=== PATIENT | female | born 1935 | race Caucasian/White ===

== ENCOUNTER 2016-03-15 09:25 | Inpatient (IN) | payer MEDICARE, MEDICAID ==
[~2016-03-15] VITALS: Ht 167.6 cm; Wt 37.3 kg
--- NOTE | 2016-03-15 10:20 | NUR ---
PT ARRIVED TO ROOM 2132 VIA WHEELCHAIR, ACCOMPANIED BY ADMISSION STAFF. PT ORIENTED TO ROOM AND CALL LIGHT. WILL DO ASSESSMENT AND START PLAN OF CARE ON PT. PT DENIES ANY NEEDS AT THIS TIME, CALL LIGHT IN REACH, NAD NOTED, WILL CONTINUE TO MONITOR.
--- NOTE | 2016-03-15 11:21 | NUR ---
#20 gauge IV catheter placed in right forearm. Bria Leblanc RN
[2016-03-15 11:45] LABS: BASOPHILS 0.3 % (0.0-2.0); EOSINOPHILS 1.9 % (0-7); HEMATOCRIT 27.3 % (36.0-48.0); HEMOGLOBIN 9.1 g/dL (12-16); IMMATURE GRANULOCYTES 0.2 % (0-5); LYMPHOCYTES 29.7 % (15-50); MCH 30.2 pg (26.0-34.0); MCHC 33.3 g/dL (31.0-37.0); MCV 90.7 fL (80.0-100.0); MEAN PLATELET VOLUME 10.9 fL (7.4-10.4); MONOCYTES 6.4 % (2-11); NEUTROPHILS 61.5 % (40-80); PLATELET COUNT 257 10x3/uL (130-400); RBC 3.01 10x6/uL (4.00-5.40); RDW 14.6 % (11.5-14.5); WBC 5.8 10x3/uL (4.8-10.8)
[2016-03-15 12:03] LABS: INR 1.11 (0.85-1.17); PROTIME 14.2 SECONDS (11.6-15.0)
[2016-03-15 12:15] LABS: ALBUMIN 3.7 g/dL (3.4-5.0); ANION GAP 20.4 mmol/L (8-16); BILIRUBIN - TOTAL 0.3 mg/dL (0.2-1.3); CARBON DIOXIDE 18.7 mmol/L (21.0-32.0); CREATININE - SERUM 4.3 mg/dL (0.6-1.3); POTASSIUM - SERUM 4.1 mmol/L (3.5-5.1); PROTEIN - SERUM 7.1 g/dL (6.4-8.2); THYROID STIMULATING HORMONE 2.28 uIU/mL (0.36-3.74); URIC ACID 7.3 mg/dL (2.6-7.2)
[2016-03-15 12:22] LABS: CALCIUM 6.7 mg/dL (8.5-10.1)
--- NOTE | 2016-03-15 14:10 | NUR ---
RATIONALE FOR SCD'S EXPLAINED. REFUSES SCD'S TODAY. WILL WEAR TONIGHT
[2016-03-15 14:20] VITALS: BP 149/82; BMI 16.1
[2016-03-15 16:07] VITALS: BP 107/74
[2016-03-15] MEDS ORDERED: MELATONIN 10 M1 EACH PO (17:12)
[2016-03-15] MEDS ORDERED: SYNTHROID50 MCG PO (17:14)
[2016-03-15] MEDS ORDERED: ACETAMINOPHEN325 MG PO (17:15)
[2016-03-15] MEDS ORDERED: ROCALTROL0.5 MCG PO (17:16)
[2016-03-15] MEDS ORDERED: TUMS500 MG PO (17:16)
--- NOTE | 2016-03-15 19:30 | NUR ---
ASSESSMENT COMPLETE, DENIES NEEDS AT THIS TIME. HOB UP SR UP X2, C/L IN REACH. RESP EVEN AND UNLAB Hard OF HEARING, USES OWN WALKER TO ASSIST WITH MOBILITY. BILAT SCDS NOT IN USE AT THIS TIME. WANTS TO WEAR AT HS. RT FA IV WITH NO R/S NOTED AT SITE. SODIUM BICARB INFUSING W/O DIFF VIA PUMP. WANAD WELL. ALERT AND ORIENTED X3. CONTINUE TO MONITOR.
--- NOTE | 2016-03-15 22:12 | NUR ---
PM MEDICATION GIVEN PO PER ORDERS, WANDA WELL. C/L IN REACH.
[2016-03-15 22:30] VITALS: BP 142/91
[2016-03-16 02:50] VITALS: BP 122/81
--- NOTE | 2016-03-16 02:54 | NUR ---
AWAKE ALERT, DENIES NEEDS AT THIS TIME. HOB UP SR UP X2, C/L IN REACH. WARM TOWELS PLACED OVER SHOULDERS PER REQUEST. BILAT SCDS IN PLACE TO LOWER LEGS. WANDA WELL. CONTINUE TO MONITOR.
[2016-03-16 06:05] VITALS: BP 143/86
[2016-03-16 06:34] LABS: BASOPHILS 0.1 % (0.0-2.0); EOSINOPHILS 2.4 % (0-7); HEMATOCRIT 26.1 % (36.0-48.0); HEMOGLOBIN 8.7 g/dL (12-16); IMMATURE GRANULOCYTES 0.3 % (0-5); LYMPHOCYTES 15.6 % (15-50); MCH 30.1 pg (26.0-34.0); MCHC 33.3 g/dL (31.0-37.0); MCV 90.3 fL (80.0-100.0); MEAN PLATELET VOLUME 10.6 fL (7.4-10.4); MONOCYTES 3.8 % (2-11); NEUTROPHILS 77.8 % (40-80); PLATELET COUNT 259 10x3/uL (130-400); RBC 2.89 10x6/uL (4.00-5.40); RDW 14.3 % (11.5-14.5); WBC 7.1 10x3/uL (4.8-10.8)
[2016-03-16 06:52] LABS: ANION GAP 17.7 mmol/L (8-16); CARBON DIOXIDE 22.2 mmol/L (21.0-32.0); CREATININE - SERUM 4.1 mg/dL (0.6-1.3); POTASSIUM - SERUM 3.9 mmol/L (3.5-5.1)
--- NOTE | 2016-03-16 06:58 | NUR ---
RECEIVED REPORT FROM FINISHER PLATE NURSE, KIERA CHARLTON. PT IN BED, SLEEPING AT THIS TIME. SCD'S ON BILAT, CALL LIGHT IN REACH, NAD NOTED, WILL CONTINUE TO MONITOR.
[2016-03-16 07:06] LABS: CALCIUM 6.2 mg/dL (8.5-10.1)
[2016-03-16 08:17] LABS: HEP B CORE AB TOTAL Negative (Negative); HEPATITIS C ANTIBODY <0.1 (0.0-0.9)
--- NOTE | 2016-03-16 08:20 | NUR ---
ADMINSITERED MORNING MEDICATIONS, PT HAD NO TROUBLE SWALLOWING PILLS, BUT TOOK ONE PILL AT A TIME. ALSO PLACED 16F OLEARY CATHETER PER DR. CANALES'S ORDER, IV FLUIDS D/C. TOTAL OUTPUT DURING THE TIME OF OLEARY PLACEMENT WAS 500CC. COLLECTED URINE SAMPLE AND TOOK IT TO LAB. ASSESSED PT, LUNGS SOUND WET. PT DENIES ANY NEEDS AT THIS TIME. CALL LIGHT IN REACH, NAD NOTED, WILL CONTINUE TO MONITOR.
[2016-03-16 08:21] VITALS: BP 146/73
--- NOTE | 2016-03-16 08:47 | NUR ---
WENT INTO PT ROOM, BECAUSE I HEARD PT CALLING OUT FOR HELP. WHEN I WALKED IN THE ROOM PT STATED THAT SHE COULDN'T BREATH AND WAS ACTING LIKE SHE WAS CHOKING. ASKED JAISON BROOKS TO CALL A RAPID RESPONSE. RAPID RESPONSE WAS CALLED AT 0848, MALIK NURSE ASTRONOMY INSTRUCTOR AT BEDSIDE, PLACED O2 AT 4L FOR O2 OF 77, PLACED TELEMETRY ON PT, TURNED PT TO LEFT SIDE BECAUSE SHE WAS SPITTING UP HER FOOD. RAPID RESPONSE TEAM ARRIVED TO ROOM. PT STATS NOW 96 ON 4L, BP A LITTLE HIGH BUT STABLE VITAL SIGNS. HOB RAISED TO 30 DEGREES. PT STATED THAT SHE FELT MUCH BETTER, ONDINA GARCIA LEFT VOICEMAIL FOR DAUGHTER. DOCTOR NOTIFIED. 0900 PT STABLE AT THIS TIME, NAD NOTED, WILL CONTINUE TO MONITOR. 1020- SPOKE WITH LINDEN, PT'S DAUGHTER IN LAW, INFORMED HER ABOUT RAPID RESPONSE AND EVERYTHING THAT WENT ON. LINDEN STATED THAT SHE WOULD NOTIFY PT'S DAUGHTER THAT PT IS NOW STABLE.
--- NOTE | 2016-03-16 08:52 | NUR ---
LEFT MESSAGE FOR PT DTR TO CALL LEXIE
--- NOTE | 2016-03-16 08:59 | NUR ---
Patient Name: REUBEN GIVENS Admission Status: Urgent Accout number: [id number] Admission Date: 03-15-2016 : 1935 Admission Diagnosis: Attending: JOHN Current LOS: 1 Anticipated DC Date: Planned Disposition: Assisted Living Primary Insurance: MEDICARE A & B PLANNED EXTERNAL PROVIDER: [facility] Discharge Planning Comments: * Is the patient Alert and Oriented? No 0 * How many steps to enter\exit or inside your home? NONE 0 * Preadmission Environment Assisted Living 0 * Facility Name [facility] 0 * ADLs Partial Dependent 0 * Partial ADLs (Assistance needed) Medication Management 0 * Community resources currently utilized None 0 * Please name any agencies selected above. NONE 0 * Additional services required to return to the preadmission environment? Yes * Can the patient safely return to the preadmission environment? Yes 0 * Has this patient been hospitalized within the prior 30 days at any hospital? No 0 CM RECEIVED CALL FROM TAMIA OF [facility] WHO INFORMED CM THAT PT LIVES AT [facility], THEY WILL NEED NURSE REPORT AND DISCHARGE INFORMATION FAXED FOR PT'S RETURN AT DISCHARGE. TAMIA ASKED TO BE NOTIFIED SOON POSSIBLE REGARDING ANY ANTICIPATED DISCHARGE DATE SO THAT TRANSPORTATION ARRANGEMENTS MAY BE MADE TIMELY. CM ATTEMPTED TO SPEAK TO PT IN ROOM, RAPID REPONSE IN PROGRESS. CM TO FOLLOW UP WITH PT FOR ASSESSMENT AT LATER DATE / TIME. PT LIVES AT [facility]; FOR RETURN AT DISCHARGE, NURSE REPORT TO BE CALLED TO [phone], FAX DISCHARGE INFORMATION TO [phone]. CM WILL ASSESS PT AT LATER DATE / TIME TO DETERMINE DISCHARGE NEEDS. Smokehouse Worker: Rajan Donovan
[2016-03-16 09:46] LABS: APPEARANCE CLEAR (CLEAR); BILIRUBIN NEGATIVE (NEGATIVE); COLOR YELLOW (YELLOW); GLUCOSE NEGATIVE (NEGATIVE); KETONE NEGATIVE (NEGATIVE); LEUKOCYTE ESTERASE NEGATIVE (NEGATIVE); NITRITE NEGATIVE (NEGATIVE); PROTEIN TRACE mg/dL (NEGATIVE); UROBILINOGEN NORMAL (NORMAL)
[2016-03-16 09:47] LABS: BACTERIA FEW /hpf (NONE SEEN); EPITHELIAL CELLS OCC /hpf (0-5); RED CELLS - URINE OCC /hpf (0-5); WHITE CELLS - URINE RARE /hpf (0-5)
[2016-03-16 12:04] VITALS: BP 131/84
[2016-03-16 12:39] VITALS: Ht 167.6 cm; Wt 37.3 kg
--- NOTE | 2016-03-16 12:40 | NUR ---
RECEIVED CALL FROM [facility], SPOKE WITH PARMJIT RHODES, AND SHE INFOMRED ME THAT PT WAS SCHEDULE FOR TOMORROW TO HAVE A RENAL ULTRSOUND DONW AT [facility]. I ALSO ASKED HER TO FAX A LIST OF THE MEDICATIONS THAT PT TAKES AND A COPY OF HER LIVING WILL.
[2016-03-16 15:45] VITALS: BP 149/81
[2016-03-16] MEDS ORDERED: MIRAPEX1.5 MG PO (17:50)
[2016-03-16] MEDS ORDERED: MULTIPLE VITAMI1 TA1 PO (17:52)
[2016-03-16] MEDS ORDERED: MILK OF MAGNESI30 ML PO (17:55)
[2016-03-16] MEDS ORDERED: FOSAMAX PLUS D1 TA1 PO (17:55)
[2016-03-16] MEDS ORDERED: OPTIVE EYE DROP30 ML EACH EYE (17:57)
[2016-03-16] MEDS ORDERED: IMODIUM2 MG PO (17:59)
[2016-03-16] MEDS ORDERED: PEPTO-BISMOL262 M1 PO (18:00)
[2016-03-16] MEDS ORDERED: MUCINEX DM ER1 EAC1 PO (18:00)
[2016-03-16] MEDS ORDERED: IBUPROFEN200 MG PO (18:01)
[2016-03-16] MEDS ORDERED: ACETAMINOPHEN500 M1 PO (18:03)
--- NOTE | 2016-03-16 19:30 | NUR ---
ASSESSMENT COMPLETE, DENIES NEEDS AT THIS TIME. HOB UP SR UP X2, C/L IN REACH. TELEMETRY IN PLACE SHOWING HR SR WITH FIRST DEGREE AV BLOCK PER VEHICLE DETAILER. RESP EVEN AND UNLAB WITH O2 @ 3.5LNC IN PLACE, CRACKLES NOTED IN BILAT LUNG CLEANING, RT FA IV WITH NO R/S NOTED AT SITE. OLEARY CATH INTACT AND PATENT WITH YELLOW URINE NOTED IN BAG, BILAT SCDS IN PLACE TO LOWER LEGS. UP WITH ASSIST OF STAFF AND WALKER TO BR. WANDA WELL. CONTINUE TO MONITOR.
[2016-03-16 20:00] VITALS: BP 129/74
--- NOTE | 2016-03-16 21:27 | NUR ---
PM MEDS GIVEN W/O DIFF. VOICES NO C/O PAIN OR DISCOMFORT AT THIS TIME. HOB UP SR UP X2, C/L IN REACH. CONTINUE TO MONITOR.
[2016-03-17] VITALS (7 sets, daily range): BP systolic 124–168; BP diastolic 73–90
[2016-03-17 05:41] LABS: BASOPHILS 0.1 % (0.0-2.0); EOSINOPHILS 0.8 % (0-7); HEMATOCRIT 27.2 % (36.0-48.0); HEMOGLOBIN 8.9 g/dL (12-16); IMMATURE GRANULOCYTES 0.6 % (0-5); LYMPHOCYTES 11.8 % (15-50); MCH 29.9 pg (26.0-34.0); MCHC 32.7 g/dL (31.0-37.0); MCV 91.3 fL (80.0-100.0); MEAN PLATELET VOLUME 10.5 fL (7.4-10.4); MONOCYTES 4.9 % (2-11); NEUTROPHILS 81.8 % (40-80); PLATELET COUNT 256 10x3/uL (130-400); RBC 2.98 10x6/uL (4.00-5.40); RDW 14.4 % (11.5-14.5); WBC 7.8 10x3/uL (4.8-10.8)
[2016-03-17 05:55] LABS: ANION GAP 18.7 mmol/L (8-16); CARBON DIOXIDE 22.2 mmol/L (21.0-32.0); CREATININE - SERUM 4.3 mg/dL (0.6-1.3); PHOSPHOROUS 6.1 mg/dL (2.5-4.9); POTASSIUM - SERUM 3.9 mmol/L (3.5-5.1); THYROID STIMULATING HORMONE 1.75 uIU/mL (0.36-3.74)
[2016-03-17 05:59] LABS: CALCIUM 6.5 mg/dL (8.5-10.1)
[2016-03-17 06:17] LABS: ALBUMIN 3.4 g/dL (3.4-5.0)
--- NOTE | 2016-03-17 07:15 | NUR ---
RECIEVED REPORT ON PATIENT, PATIENT IS ALERT AND ORIENTED. PATIENT HAS A R FA IV THAT IS SL AT THIS TIME. PATIENT WEARING 4L/MIN VIA NC WITH O2 SAT 98%. PATIENT HAS A PRODUCTIVE COUGH, CRACKLES NOTED THROUGHOUT LUNG CLEANING. NOTIFIED DR CANALES HE IS GOING TO ORDER BREATHING TREATMENTS. PATIENT USING YANKER FOR SPUTUM. DENIES ANY OTHER NEEDS. WILL CONT TO MONITOR PATIENT. CPOC
--- NOTE | 2016-03-17 09:30 | NUR ---
MORNING MEDICATIONS GIVEN, ASSESSMENT DONE. TYLENOL GIVEN FOR HEADACHE. PATIENT DENIES ANY OTHER NEEDS. BED LOW AND LOCKED. CPOC
--- NOTE | 2016-03-17 12:00 | NUR ---
PATIENT SITTING UP EATING LUNCH AT THIS TIME. DENIES ANY PAIN OR NEEDS. CPOC
--- NOTE | 2016-03-17 15:00 | NUR ---
IV access-#22 gauge IV catheter in left forearm for saline lock. Bria Victoria RN
--- NOTE | 2016-03-17 16:17 | NUR ---
PATIENT SLEEPING AT THIS TIME. NAD NOTED, CHEST RISES AND FALLS EQUALLY. WILL CONT TO MONITOR
--- NOTE | 2016-03-17 20:33 | NUR ---
HS MEDS GIVEN, REPOSITIONED IN BED FOR COMFORT. PT STATED THAT SHE CANT FIND HER CELL PHONE BUT CAN HEAR IT RINGING, STRAIGHTEND UP BLANKETS ON BED AND FOUND PHONE UNDER PINK PAD ON BED.
[2016-03-18] VITALS: BP 119/69
--- NOTE | 2016-03-18 00:42 | NUR ---
CALCIUM GLUCONATE INFUSING TO LEFT FOREARM IV, RESPERATIONS EVEN, NO S/S DISTRESS NOTED.
--- NOTE | 2016-03-18 01:13 | NUR ---
PT RESTING SOUNDLY WITHOUT C/O OR DISTRESS NOTED. CALL LIGHT IS WITHIN REACH. NO NEEDS VOICED. WILL MONITOR.
[2016-03-18 04:00] VITALS: BP 116/60
[2016-03-18 06:08] LABS: BASOPHILS 0.1 % (0.0-2.0); EOSINOPHILS 0 % (0-7); HEMATOCRIT 24.6 % (36.0-48.0); HEMOGLOBIN 8.5 g/dL (12-16); IMMATURE GRANULOCYTES 0.6 % (0-5); LYMPHOCYTES 8.3 % (15-50); MCH 31.3 pg (26.0-34.0); MCHC 34.6 g/dL (31.0-37.0); MCV 90.4 fL (80.0-100.0); MEAN PLATELET VOLUME 10.3 fL (7.4-10.4); MONOCYTES 3.4 % (2-11); NEUTROPHILS 87.6 % (40-80); PLATELET COUNT 225 10x3/uL (130-400); RBC 2.72 10x6/uL (4.00-5.40); RDW 14.6 % (11.5-14.5)
[2016-03-18 06:34] LABS: % SATURATION 5 % (15-55); IRON 12 ug/dl (35-150); TOTAL IRON BIND CAPACITY 231 ug/dl (260-445); UNSAT IRON BIND CAPACITY 219 ug/dl (150-375)
[2016-03-18 06:50] LABS: ANION GAP 17.9 mmol/L (8-16); CARBON DIOXIDE 21.7 mmol/L (21.0-32.0); CREATININE - SERUM 4.6 mg/dL (0.6-1.3); POTASSIUM - SERUM 3.6 mmol/L (3.5-5.1)
[2016-03-18 06:52] LABS: CALCIUM 6.9 mg/dL (8.5-10.1)
--- NOTE | 2016-03-18 07:00 | NUR ---
RECEIVED REPORT. ASSUMED CARE OF PATIENT. PATIENT SITTING UP IN BED. EYES CLOSED. STATES SHE HAS A HEADACHE THIS AM BUT OTHERWISE SHE STATES SHE IS OK. RESP EVEN AND UNLABORED. RHONCHI AND WHEEZES NOTED DURING ASSESSMENT AT THIS TIME. CALL LIGHT WITH IN REACH. NO ACUTE DISTRESS.
[2016-03-18 07:34] VITALS: BP 94/61
--- NOTE | 2016-03-18 09:23 | NUR ---
MEDICATED FOR HEADACHE AT THIS TIME. NO DISTRESS.
[2016-03-18 12:13] VITALS: BP 93/52
--- NOTE | 2016-03-18 12:14 | NUR ---
PATIENT SITTING UP IN CHAIR AT BEDSIDE CONSUMING NOON MEAL. NO DISTRESS. CALL LIGHT WITHIN REACH.
--- NOTE | 2016-03-18 14:46 | NUR ---
ASSISTED PATIENT BACK TO BED FROM BEDSIDE CHAIR AT THIS TIME. NO DISTRESS. CALL LIGHT PLACED WITHIN REACH. NO DISTRESS DENIES PAIN AT THIS TIME.
[2016-03-18 16:19] VITALS: BP 120/62
--- NOTE | 2016-03-18 18:43 | NUR ---
RESTING IN BED WITH EYES OPEN. ATTENTION TOWARD TELEVISION. CALL LIGHT WITHIN REACH. NO DISTRESS. DENIES PAIN.
--- NOTE | 2016-03-18 19:57 | NUR ---
ASSESSMENT COMPLETE, A&O, O2 AT 4 ITER VIA NC. RESPERATIONS EVEN. IV TO LEFT FOREARM WITH NS AT KVO. SITE CLEAN AND DRY. OLEARY DRAINING TO GRAVITY, PT DENIES PAIN OR NEEDS, BED LOW, CL IN REACH.
[2016-03-18 20:49] VITALS: BP 120/58
--- NOTE | 2016-03-18 20:57 | NUR ---
HS MEDS GIVEN WITH FRESH ICE WATER, DENIES PAIN OR NEEDS, WILL CONT TO MONITOR.
--- NOTE | 2016-03-18 21:10 | NUR ---
CONTROLS PROJECT ENGINEER AT BED SIDE, BATH AND LINEN CHANGE COMPLETE.
--- NOTE | 2016-03-19 00:07 | NUR ---
PT RESTING WITH EYES CLOSED. RESP EVEN AND REGULAR. SR UP X2, CALL LIGHT WITHIN REACH.
[2016-03-19 00:36] VITALS: BP 98/46
--- NOTE | 2016-03-19 03:33 | NUR ---
RESTING WITH EYES CLOSED, RESPERATIONS EVEN, NO S/S DISTRESS NOTED.
[2016-03-19 04:39] VITALS: BP 137/50
[2016-03-19 06:56] LABS: BASOPHILS 0.1 % (0.0-2.0); EOSINOPHILS 0 % (0-7); HEMATOCRIT 23.3 % (36.0-48.0); HEMOGLOBIN 7.9 g/dL (12-16); IMMATURE GRANULOCYTES 0.7 % (0-5); LYMPHOCYTES 4.1 % (15-50); MCH 30.4 pg (26.0-34.0); MCHC 33.9 g/dL (31.0-37.0); MCV 89.6 fL (80.0-100.0); MONOCYTES 3.4 % (2-11); NEUTROPHILS 91.7 % (40-80); RDW 14.3 % (11.5-14.5)
[2016-03-19 06:59] LABS: PLATELET COUNT 168 10x3/uL (130-400); WBC 18.7 10x3/uL (4.8-10.8)
--- NOTE | 2016-03-19 07:00 | NUR ---
RECEIVED REPORT. ASSUMED CARE OF PATIENT. CALL LIGHT WITHIN REACH. RESTING WITH EYES CLOSED. EASILY AROUSED. RESP EVEN AND UNLABORED. NO ACUTE DISTRESS. NS INFUSING AT KVO TO LEFT FOREARM.
[2016-03-19 07:38] LABS: ANION GAP 19.8 mmol/L (8-16); PHOSPHOROUS 6.3 mg/dL (2.5-4.9); POTASSIUM - SERUM 3.8 mmol/L (3.5-5.1)
[2016-03-19 07:39] LABS: CALCIUM 6.7 mg/dL (8.5-10.1)
--- NOTE | 2016-03-19 09:00 | NUR ---
PATIENT OOB AMBULATING WITH ROLLING WALKER WITH ASSIST OF THIS GRAPE CUTTER AND PT. TOLERATED THERAPY WELL. NO DISTRESS.
[2016-03-19 09:31] VITALS: BP 129/57
--- NOTE | 2016-03-19 11:30 | NUR ---
PATIENT RESTING IN BED. INCONTINENT CARE PROVIDED. PERICARE PROVIDED. CALL LIGHT WITHIN REACH. NO DISTRESS. DENIES PAIN. ASSIST TO REPOSITION AND SIT PATINET UP IN BED AFTER CARES RENDERED SO PATIENT CAN EAT NOON MEAL.
[2016-03-19 12:55] VITALS: BP 126/62
--- NOTE | 2016-03-19 15:15 | NUR ---
UA COLLECTED AND SENT TO LAB.
[2016-03-19 15:57] LABS: CREATININE - URINE 13.6 mg/dL (30-125); PROTEIN - URINE 35.3 mg/dL (0.0-11.9)
[2016-03-19 16:07] LABS: APPEARANCE HAZY (CLEAR); COLOR STRAW (YELLOW)
[2016-03-19 16:08] LABS: BILIRUBIN NEGATIVE (NEGATIVE); GLUCOSE NEGATIVE (NEGATIVE); KETONE NEGATIVE (NEGATIVE); LEUKOCYTE ESTERASE NEGATIVE (NEGATIVE); NITRITE NEGATIVE (NEGATIVE); PROTEIN TRACE mg/dL (NEGATIVE); UROBILINOGEN NORMAL (NORMAL)
[2016-03-19 16:10] LABS: BACTERIA FEW /hpf (NONE SEEN); EPITHELIAL CELLS 0-5 /hpf (0-5); GRANULAR CAST OCC /lpf (NONE SEEN); MUCUS <1+ /lpf (NONE SEEN); WHITE CELLS - URINE 0-5 /hpf (0-5)
[2016-03-19 16:59] VITALS: BP 148/68
--- NOTE | 2016-03-19 18:00 | NUR ---
RESTING WITH EYES CLOSED. EASILY AROUSED. RESP EVEN AND UNLABORED. CALL LIGHT WITHIN REACH. NO DISTRESS.
--- NOTE | 2016-03-19 19:03 | NUR ---
RESTING QUIETLY IN BED, EYES CLOSED, RESP UNLABORED, IV PATENT TO LEFT FOREARM, O2@4LNC, OLEARY DRAINING TO GRAVITY, NO DISTRESS NOTED
[2016-03-19 21:36] VITALS: BP 129/73
--- NOTE | 2016-03-20 01:13 | NUR ---
IV OUT, RESITED TO LEFT FOREARM USING 22G X1 ATTEMPT, WANDA WELL
[2016-03-20 02:34] VITALS: BP 120/62
[2016-03-20 04:44] VITALS: BP 131/69
--- NOTE | 2016-03-20 06:00 | NUR ---
RESTING QUIETLY IN BED, IV PATENT, NO DISTRESS NOTED
[2016-03-20 06:57] LABS: BASOPHILS 0.1 % (0.0-2.0); EOSINOPHILS 0.2 % (0-7); HEMATOCRIT 25.4 % (36.0-48.0); HEMOGLOBIN 8.6 g/dL (12-16); IMMATURE GRANULOCYTES 0.7 % (0-5); LYMPHOCYTES 9.7 % (15-50); MCH 30.3 pg (26.0-34.0); MCHC 33.9 g/dL (31.0-37.0); MCV 89.4 fL (80.0-100.0); MEAN PLATELET VOLUME 10.4 fL (7.4-10.4); MONOCYTES 3.8 % (2-11); NEUTROPHILS 85.5 % (40-80); RBC 2.84 10x6/uL (4.00-5.40); RDW 14.2 % (11.5-14.5); WBC 14.6 10x3/uL (4.8-10.8)
[2016-03-20 07:05] LABS: PLATELET COUNT 244 10x3/uL (130-400)
[2016-03-20 07:19] LABS: CARBON DIOXIDE 21.2 mmol/L (21.0-32.0)
[2016-03-20 07:30] LABS: POTASSIUM - SERUM 3.2 mmol/L (3.5-5.1)
[2016-03-20 07:31] LABS: CALCIUM 6.5 mg/dL (8.5-10.1)
[2016-03-20 08:00] VITALS: BP 143/73
--- NOTE | 2016-03-20 09:59 | NUR ---
PT IS ALERT. ASSESSMENT DONE PER FLOWSHEET. NO OTHER NEEDS AT THIS TIME. WILL CONTINUE TO MONITOR.
[2016-03-20 11:08] VITALS: BP 105/64
--- NOTE | 2016-03-20 12:43 | NUR ---
Patient Name: REUBEN GIVENS Encounter No: [id number] : 1935 Primary Insurance: MEDICARE A & B Anticipated DC Date: Planned Disposition: INPATIENT REHAB External Planned Provider: [facility] DCP follow-up note: * Is the patient Alert and Oriented? Yes 0 * How many steps to enter\exit or inside your home? NONE 0 * PCP DR. ROY 0 * Pharmacy [facility] 0 * Preadmission Environment Assisted Living 0 * Facility Name [facility] 0 * ADLs Partial Dependent 0 * Partial ADLs (Assistance needed) Medication Management 0 * Equipment Walker 0 * Other Equipment NO MEDICAL EQUIPMENT PROVIDER PREFERENCE 0 * List name and contact numbers for known caregivers / representatives who currently or will assist patient after discharge: SID TRENT, DAUGHTER, 0 * Community resources currently utilized None 0 * Please name any agencies selected above. NONE 0 * Additional services required to return to the preadmission environment? Yes * Can the patient safely return to the preadmission environment? Yes 0 * Has this patient been hospitalized within the prior 30 days at any hospital? No 0 CM SPOKE TO DINESH WITH PHYSICAL THERAPY WHO REPORTS PT TO HAVE POOR BALANCE AND WALKED 70 FEET WITH MODERATE ASSISTANCE, RECOMMENDS INPATIENT THERAPY PRIOR TO RETURN TO ASSISTED LIVING. CM SPOKE TO PT IN ROOM, DISCUSSED INPATIENT AND [facility] REHAB OPTIONS, PT WOULD LIKE TO BE EVALUATED FOR INPATIENT REHAB AT [place] FOR RETURN TO ASSISTED LIVING AT [facility]. IMPORTANT MESSAGE FROM MEDICARE PROVIDED AND EXPLAINED. CM SPOKE TO YULIA OF [facility] INPATIENT REHAB AND OBTAINED ORDER FOR INPATIENT REHAB PRESCREEN. CM WAITING COMPLETION AND RESULT OF INPATIENT REHAB PRESCREEN BY [facility] INPATIENT REHAB. Rajan Donovan, CASE MANAGEMENT
--- NOTE | 2016-03-20 13:18 | NUR ---
NO SS OF DISTRESS AT THIS TIME WILL CONTINUE TO MONITOR. NO OTHER NEEDS
[2016-03-20 15:09] VITALS: BP 142/78
[2016-03-20] MEDS ORDERED: ACETAMINOPHEN325 MG PO (15:21)
[2016-03-20] MEDS ORDERED: DIFLUCAN100 MG PO (15:28)
[2016-03-20] MEDS ORDERED: LEVAQUIN250 MG PO (15:29)
[2016-03-20] MEDS ORDERED: ZOSYN 2.25 GM2.25 G1 IV (15:29)
[2016-03-20] MEDS ORDERED: TUMS500 MG PO (15:49)
[2016-03-20] MEDS ORDERED: LOVENOX30 MG/0.3 SC (15:51)
[2016-03-20] MEDS ORDERED: BUMEX 1 MG/1 MG/4 ML IV (15:52)
[2016-03-20] MEDS ORDERED: IPRAT-ALBUT 0.5-3 ML UPD (15:52)
[2016-03-20] MEDS ORDERED: FLORAJEN3 CAPS460 MG PO (15:53)
[2016-03-20] MEDS ORDERED: COLACE100 MG PO (15:53)
[2016-03-20] MEDS ORDERED: CHRONULAC30 ML PO (15:54)
--- NOTE | 2016-03-20 16:28 | NUR ---
Patient Name: REUBEN GIVENS Encounter No: [id number] : 1935 Primary Insurance: MEDICARE A & B Anticipated DC Date: 03-20-2016 Planned Disposition: INPATIENT REHAB External Planned Provider: [facility] INPATIENT REHAB DCP follow-up note: CM SPOKE TO ASSISTANT MANAGER BILINGUAL, PT HAS BEEN ACCEPTED TO INPATIENT REHAB, ROOM 1118-A, DOCTOR DISCHARGING PT TODAY. CM SPOKE TO PT IN ROOM. PT IS WILLING FOR DISCHARGE TO INPATIENT REHAB TODAY, ASKED CM TO CALL HER DAUGHTER AND LET HER KNOW. CM CALLED BRENT, , NOTIFIED OF DISCHARGE TO INPATIENT REHAB. CM CALLED [facility], , SPOKE TO PARMJIT AND NOTIFIED OF PT'S ADMISSION TO INPATIENT REHAB AT [place]. NO FURTHER DISCHARGE NEEDS IDENTIFIED. NURSE REPORT TO BE CALLED TO [facility] INPATIENT REHAB, PT TO ADMIT TO ROOM 1118-A. Rajan Donovan, CASE MANAGEMENT
--- NOTE | 2016-03-20 17:42 | NUR ---
DC TEACHING IS COMPLETED. NO OTHER NEEDS AT THIS TIME. REPORT ALREADY CALLED TO REHAB AT THIS TIME.
--- NOTE | 2016-03-23 16:23 | EC ---
PATIENT:REUBEN GIVENS DATE OF SERVICE: 03/15/16 SEX: F MEDICAL RECORD: [id number] DATE OF : [birth year] LOCATION:D.M2 D.213 AGE OF PATIENT: 80 ADMISSION DATE: 03/15/16 REFERRING PHYSICIAN: INTERPRETING PHYSICIAN: TREV BRITO MD ECHOCARDIOGRAM REPORT ECHO CHARGES 4 ECHO COMPLETE CLINICAL DIAGNOSIS: CONGESTION ASSESS EF AND VALVES ECHOCARDIOGRAPHIC MEASUREMENTS (adult normal given) AC root (d.<3.7cm) 2.8 LV Septum d (<1.2 cm> 1.0 Valve Excursion 1.2 LV Septum (systole) 1.1 Left Atria (s.<4.0cm> 2.9 LVPW d(<1.2cm) 1.0 RV (d.<2.3cm) 2.3 LVPW (sytole) 1.3 LV diastole(<5.6CM) 3.2 MV E-F(>70mm/sec) LV systole 1.9 LVOT Diameter 1.7 MV exc.(>10mm) 1.1 Est.ejection fraction (50-75%) Pericardial Effusion N DOPPLER: LVIT A E LA RVSP LVOT 72 AOP1/2T Asc. Ao 118 RVOT 90 RA PA 113 AV Gradient Peak 5.6 AV Mean 3.0 AV Area 1.5 MV Gradient Peak 2.5 MV Mean 0.74 MV Area COMMENTS: Battery Loader: Joaquim GORE Engagement Engineer:Arnulfo Brunson TAPE# PACS DATE OF SERVICE: 03/16/2016 Echocardiogram FINDINGS: 1. Left ventricular chamber size is within normal limits. Left ventricular systolic function is normal. Overall ejection fraction estimated at 55%. 2. Right atrium and right ventricular chamber sizes are within normal limits. Left atrium measures 2.9 cm. 3. Valvular structures have normal structure and motion. ECHOCARDIOGRAM REPORT [id number] REUBEN GIVENS 4. Doppler interrogation only reveals mild mitral regurgitation. No other valvular insufficiency or stenosis. 5. No evidence of pericardial effusion or left ventricular thrombus. TRANSINT:[id number] Voice Confirmation ID: [id number] DOCUMENT ID: [id number] TREV BRITO MD at 1623 CC: [id number] DICTATION DATE: 03/17/16 1213 ASSURANCE ASSOCIATE: 03/17/16 1318 DIS IN 03/20/16 [facility] [address] [place] [address]
--- NOTE | 2016-03-27 08:58 | HP ---
PATIENT: REUBEN GIVENS MEDICAL RECORD: [id number] ACCOUNT: [id number] LOCATION:[address] : [birth year] ADMISSION DATE: 03/15/16 HISTORY AND PHYSICAL EXAMINATION REASON FOR ADMISSION: Acute kidney injury on chronic kidney disease. HISTORY OF PRESENT ILLNESS: This is an 80-year-old female with a creatinine of 1.3 back on 10/02/2015 and 3.0 on 01/12/2016. Her creatinine came back at 4.4 and she is being admitted for acute kidney injury as well as hypocalcemia. REVIEW OF SYSTEMS: She is very pleasant, does not complain of any problems. No dysuria, pyuria or hematuria. We did determine that she had yeast and then she did say she may have some urinary retention or just does not go to the bathroom very often, but all of the review of systems are negative. ALLERGIES: ASPIRIN AND SULFA. CURRENT MEDICATIONS: Azilect 1 mg daily, calcitriol 0.5 daily, Fosamax one a day on Tuesdays, ibuprofen which we did stop, levothyroxine 50 mcg a day, Imodium 2 mg p.r.n. q.6 hours, melatonin 4 mg at bedtime, milk of magnesia we held, Mucinex we held, Mirapex we held, multivitamin once a day, Pepto-Bismol p.r.n. we held, Refresh eyedrops p.r.n. 3 times a day, Tums 500 mg twice a day, and Tylenol extra strength. PAST MEDICAL HISTORY: 1. She had acute kidney injury on chronic kidney disease stage III. 2. Parkinson disease. 3. Hypocalcemia. 4. Irritable bowel. 5. Insomnia. 6. Hypothyroidism. 7. Osteoarthritis of the knees and hips for which she was on ibuprofen. SOCIAL HISTORY: She lives in assisted living. She is . No smoking, no alcohol. PAST SURGICAL HISTORY: Left femur fracture with a pin and tubal ligation in 1973. FAMILY HISTORY: Mom had CHF. Dad had CHF. She has healthy children. REVIEW OF SYSTEMS: GENERAL: She is having fatigue and dry eyes. HEENT: No sore throat, problems with hearing or vision. CHEST: No chest pain or shortness of breath. ABDOMINAL: She does have constipation. MUSCULOSKELETAL: Some weakness bilaterally due to Parkinson's disease. No skin changes. No problems with her breast or axillary area. No neuropathy. PSYCHIATRIC: No psychiatric illnesses as well. All the rest of the review of systems are negative. PHYSICAL EXAMINATION: VITAL SIGNS: Blood pressure is 132/72, pulse is 66, 18 respiratory rate. GENERAL: She is alert and oriented times 3. HISTORY AND PHYSICAL [id number] REUBEN GIVENS: Normocephalic and atraumatic. Extraocular muscles are intact. Visual acuity is intact. Sclerae nonicteric and PERRLA. Ears: Clear TMs. Hearing is intact. Nose is clear with no inflammation of the mucosa or septum. Clear throat. NECK: No thyromegaly or adenopathy. CHEST: Regular rhythm without a rub. LUNGS: Clear to auscultation. ABDOMEN: Nontender in all 4 quadrants with no organomegaly. Trace lower extremity edema. Grossly intact except for global weakness and uses a walker when she walks. Balance is fair. ASSESSMENT AND PLAN: 1. Acute kidney injury. Creatinine was 1.3 this summer. She reports no changes, but does have yeast cystitis. 2. Hypocalcemia with secondary hyperparathyroidism. Her PTH was over 900. 3. Parkinson's disease. She could have urinary retention. Ultrasound did not show hydronephrosis. 4. Hypothyroidism, difficult to determine if she has symptoms with her elevated BUN. We will check her TSH. 5. Anemia, suspect due to her renal insufficiency. No mention of blood loss. We will send iron studies, B12, and folate. 6. ENEIDA, ANCA, C3, C4 were normal. Her urine protein creatinine ratio was less than 1. The full report is pending. She did have yeast on her urinalysis and will be treated with Diflucan. PLAN: Please see orders. TRANSINT:[id number] Voice Confirmation ID: [id number] DOCUMENT ID: [id number] LARON CANALES MD at 0858 CC: [id number] DICTATION DATE: 03/16/16 1508 THREAD GRINDER TOOL: 03/16/16 1545 DIS IN 03/20/16 [id number] [place] [address]
--- NOTE | 2016-04-12 09:12 | CN ---
PATIENT NAME:REUBEN DUQUE MEDICAL RECORD: [id number] : 31 LOCATION:[facility] D.2132 ADMIT DATE: 03/15/16 ACCOUNT: [id number] CONSULTING PHYSICIAN: SHERRON ASHLEY MD REFERRING PHYSICIAN: MELCHOR CARNEY MD DATE OF CONSULTATION: 03/17/2016 CONSULT REQUESTING PHYSICIAN: Melchor Carney MD REASON FOR CONSULTATION: Shortness of breath and congestion. HISTORY OF PRESENT ILLNESS: Ms. Duque is an 80-year-old female with a history of stage III chronic kidney disease, her baseline creatinine was 1.3 and now it was 1.4. The patient has become dyspneic this morning. She was given some Bumex, now she is feeling better. She denies any fever and chill. There is no cough. No sputum production. REVIEW OF SYSTEMS: CONSTITUTIONAL: No fever and chills. HEENT: No sinus congestion. RESPIRATORY: As in history of present illness. GASTROINTESTINAL: Negative. GENITOURINARY: She has a chronic renal disease. Other review of systems are negative. PAST MEDICAL HISTORY: 1. Chronic kidney disease. 2. Parkinson disease. 3. Hypocalcemia. 4. Irritable bowel syndrome. 5. Insomnia. 6. Hypothyroidism. 7. Osteoarthritis. PAST SURGICAL HISTORY: She has left femur fracture pin and tubal ligation in 1973. ALLERGIES: SHE IS ALLERGIC TO SULFA AND ASPIRIN. MEDICATIONS: MyRoll was reviewed. PERSONAL AND SOCIAL HISTORY: The patient is a nonsmoker and nondrinker. FAMILY HISTORY: Noncontributory. PHYSICAL EXAMINATION: GENERAL: Now, the patient is lying comfortably. She is not in acute distress. VITAL SIGNS: The blood pressure is 137/75, pulse is 83, respiration is 18, temperature 97.5, and SPO2 is 97% on 4 liters nasal cannula. HEENT: Conjunctivae are pink. Sclerae nonicteric. NECK: Supple. There is elevated JVD. CHEST: There are bilateral crackles. No wheezing. HEART: Rhythm regular, normal sound, no murmur. ABDOMEN: Soft. Bowel sounds present. No hepatosplenomegaly. RECTAL: Deferred. CONSULT REPORT [id number] REUBEN DUQUE EXTREMITIES: No cyanosis, no clubbing. There is 1+ pedal edema. SKIN: Warm, normal turgor. CENTRAL NERVOUS SYSTEM: The patient is awake and alert. There is no obvious cranial nerve abnormality. CHEST RADIOGRAPH: Showed bilateral pulmonary edema. OTHER LABORATORY DATA: CBC: WBC 7.8, hemoglobin 8.9, hematocrit 27.2 and platelet count 256. Sodium 136, potassium is 3.9, BUN is 71 and creatinine 4.3. IMPRESSION: 1. Acute hypoxic respiratory failure secondary to pulmonary edema. 2. Pulmonary edema. 3. Congestive heart failure with diastolic dysfunction. 4. Possible fluid overload secondary to chronic kidney disease. 5. Parkinson disease. RECOMMENDATION: Continue Bumex. Follow up labs and chest radiograph in the morning. Continue present care. Dr. Carney, once again thanks for involving me in the care of Ms. Duque. TRANSINT:[id number] Voice Confirmation ID: [id number] DOCUMENT ID: [id number] SHERRON ASHLEY MD at 0912 CC: MELCHOR CARNEY MD [id number] DICTATION DATE: 03/17/16 1725 PUBLICATION EDITOR: 03/17/16 1908 DIS IN 03/20/16 [id number] [place] [address]
== END 2016-03-20 17:46 | DRG 682 ==
LOC: D.M2 09:25 → D.SDCHOLD 09:25 → D.M2 09:37
PROVIDERS: Internal Medicine Nephrology; ADMIT Internal Medicine Nephrology
DX: N17.9 Acute kidney failure, unspecified (principal); J96.01 Acute respiratory failure with hypoxia; J69.0 Pneumonitis due to inhalation of food and vomit; I13.0 Hypertensive heart and chronic kidney disease with heart failure and stage 1 through stage 4 chronic kidney disease, or unspecified chronic kidney disease; I50.30 Unspecified diastolic (congestive) heart failure; B37.49 Other urogenital candidiasis; N18.3 Chronic kidney disease, stage 3 (moderate); E03.9 Hypothyroidism, unspecified; N25.81 Secondary hyperparathyroidism of renal origin; K59.00 Constipation, unspecified; D50.9 Iron deficiency anemia, unspecified; G47.00 Insomnia, unspecified; K58.9 Irritable bowel syndrome, unspecified; G20 Parkinson's disease; M19.90 Unspecified osteoarthritis, unspecified site

== ENCOUNTER 2016-03-20 18:00 | Inpatient (IN) | payer MEDICARE, MEDICAID ==
[~2016-03-20] VITALS: Ht 167.6 cm; Wt 44.9 kg
[~2016-03-20 18:00] MED LIST: ACETAMINOPHEN325 MG PO; ACETAMINOPHEN500 M1 PO; BUMEX 1 MG/1 MG/4 ML IV; CHRONULAC30 ML PO; COLACE100 MG PO; DIFLUCAN100 MG PO; FLORAJEN3 CAPS460 MG PO; FOSAMAX PLUS D1 TA1 PO; IBUPROFEN200 MG PO; IMODIUM2 MG PO; IPRAT-ALBUT 0.5-3 ML UPD; LEVAQUIN250 MG PO; LOVENOX30 MG/0.3 SC; MELATONIN 10 M1 EACH PO; MILK OF MAGNESI30 ML PO; MIRAPEX1.5 MG PO; MUCINEX DM ER1 EAC1 PO; MULTIPLE VITAMI1 TA1 PO; OPTIVE EYE DROP30 ML EACH EYE; PEPTO-BISMOL262 M1 PO; ROCALTROL0.5 MCG PO; SYNTHROID50 MCG PO; TUMS500 MG PO; ZOSYN 2.25 GM2.25 G1 IV
[2016-03-20 19:42] VITALS: BP 124/78; BMI 16.1
--- NOTE | 2016-03-20 20:20 | NUR ---
REVEIVED PT FROM DAY NURSE. PT REPORTEDLY ARRIVED TO THE UNIT AT 1808 VIA WHEELCHAIR ACCOMPANIED BY HOSPITAL STAFF. PT HAS A OLEARY DRAINING CLEAR YELLOW URINE AND O2 RUNNING AT 2LPM. PT IS WEARING GLASSES AND HER LIFE ALERT NECKLACE. PT IV TO LEFT FOREARM IS PATENT, DRESSING CDI. PT DENIES NEEDS AT THIS TIME. BED LOW. CL IN REACH.
--- NOTE | 2016-03-20 22:50 | NUR ---
PT TOOK HS MEDS WITHOUT DIFFICULTY. ZOSYN IV STARTED. WCTM. BED LOW. CL IN REACH.
--- NOTE | 2016-03-21 02:37 | NUR ---
PT RESTING, EYES CLOSED. BED LOW. CLIN REACH. WCTM.
[2016-03-21 05:07] LABS: BASOPHILS 0.2 % (0.0-2.0); EOSINOPHILS 0.8 % (0-7); HEMATOCRIT 27.5 % (36.0-48.0); HEMOGLOBIN 9.2 g/dL (12-16); IMMATURE GRANULOCYTES 1.1 % (0-5); LYMPHOCYTES 15.7 % (15-50); MCH 30.2 pg (26.0-34.0); MCHC 33.5 g/dL (31.0-37.0); MCV 90.2 fL (80.0-100.0); MEAN PLATELET VOLUME 10.1 fL (7.4-10.4); NEUTROPHILS 75.2 % (40-80); PLATELET COUNT 239 10x3/uL (130-400); RBC 3.05 10x6/uL (4.00-5.40); RDW 14.3 % (11.5-14.5)
[2016-03-21 05:31] LABS: ANION GAP 21.1 mmol/L (8-16); CARBON DIOXIDE 23.2 mmol/L (21.0-32.0); CREATININE - SERUM 5.1 mg/dL (0.6-1.3); POTASSIUM - SERUM 3.3 mmol/L (3.5-5.1)
[2016-03-21 05:33] LABS: WBC 9.1 10x3/uL (4.8-10.8)
[2016-03-21 05:42] LABS: CALCIUM 6.7 mg/dL (8.5-10.1)
--- NOTE | 2016-03-21 08:10 | NUR ---
SITTING UP IN BED EATING BREAKFAST. OXYGEN IN USE. CALL LIGHT IN REACH
[2016-03-21 08:37] VITALS: BP 138/70
[2016-03-21 10:50] VITALS: Ht 167.6 cm; Wt 44.9 kg
--- NOTE | 2016-03-21 13:14 | NUR ---
SITTING UP IN BED EATING LUNCH. REMAINS CONFUSED BUT PLEASANT
[2016-03-21 16:46] LABS: APPEARANCE CLEAR (CLEAR); COLOR YELLOW (YELLOW)
[2016-03-21 16:47] LABS: BILIRUBIN NEGATIVE (NEGATIVE); GLUCOSE NEGATIVE (NEGATIVE); KETONE NEGATIVE (NEGATIVE); LEUKOCYTE ESTERASE NEGATIVE (NEGATIVE); NITRITE NEGATIVE (NEGATIVE); PROTEIN TRACE mg/dL (NEGATIVE); UROBILINOGEN NORMAL (NORMAL)
--- NOTE | 2016-03-21 19:30 | NUR ---
INTRODUCED SELF TO PT, PT STATES NO NEEDS AT THIS TIME, WILL CONTINUE TO MONITOR, CALL LIGHT WITHIN REACH.
[2016-03-21 20:58] VITALS: BP 145/79
--- NOTE | 2016-03-21 21:34 | NUR ---
NIGHT MEDICATION GIVEN, PT TOLERATED WELL, NO NEW NEEDS NOTED AT THIS TIME, WILL CONTINUE TO MONITOR, CALL LIGHT WITHIN REACH.
--- NOTE | 2016-03-21 23:17 | NUR ---
PT RESTING QUIETLY, RESPIRATIONS EVEN, EMPTIED 800 CC OF CLEAR URINE OUT OF OLEARY BAG, BED IN LOW POSITION, SIDE RAILS UP X'S 2, CALL LIGHT SALOMÓN REYES, WILL CONTINUE TO MONITOR.
--- NOTE | 2016-03-22 00:37 | NUR ---
PT RESTING QUIETLY LYING ON HER BACK, RESPIRATIONS EVEN, O2 ON 2LITER VIA NASAL CANULA, CALL LIGHT WITHIN REACH, WILL CONTINUE TO MONITOR.
--- NOTE | 2016-03-22 01:13 | NUR ---
ASSUMED CARE OF PT. AT THIS TIME. PT. IN BED WITH HOB UP FOR COMFORT AND AWAKENS EASILY UPON ENTERING ROOM. PT. HAS NO VOICED NEEDS AT THIS TIME. I.V. INFUSING TO LFA OF 0.9%NS AT 50CC/HR VIA PUMP WITHOUT ANY ALARMS. OLEARY TO BSD WITHOUT PROBLEMS. CALL LIGHT WITHIN REACH.
[2016-03-22 05:50] LABS: BASOPHILS 0.3 % (0.0-2.0); EOSINOPHILS 1.7 % (0-7); HEMATOCRIT 27.1 % (36.0-48.0); HEMOGLOBIN 9.3 g/dL (12-16); IMMATURE GRANULOCYTES 1.1 % (0-5); LYMPHOCYTES 14.9 % (15-50); MCH 30.9 pg (26.0-34.0); MCHC 34.3 g/dL (31.0-37.0); MEAN PLATELET VOLUME 9.9 fL (7.4-10.4); MONOCYTES 9.6 % (2-11); NEUTROPHILS 72.4 % (40-80); PLATELET COUNT 229 10x3/uL (130-400); RBC 3.01 10x6/uL (4.00-5.40); RDW 14.2 % (11.5-14.5)
[2016-03-22 06:15] LABS: WBC 6.6 10x3/uL (4.8-10.8)
[2016-03-22 06:26] LABS: ANION GAP 19.2 mmol/L (8-16); CARBON DIOXIDE 21.1 mmol/L (21.0-32.0); CREATININE - SERUM 4.8 mg/dL (0.6-1.3); POTASSIUM - SERUM 3.3 mmol/L (3.5-5.1); THYROID STIMULATING HORMONE 1.22 uIU/mL (0.36-3.74)
[2016-03-22 06:32] LABS: CALCIUM 6.9 mg/dL (8.5-10.1)
--- NOTE | 2016-03-22 06:32 | NUR ---
PT. IN BED WITH HOB UP FOR COMFORT WITH EYES CLOSED AND RESP. EVEN. PT. AWAKENS EASILY AND HAS NO VOICED NEEDS. I.V. INFUSING VIA LFA WITHOUT ANY ALARMS AND OLEARY TO BSD WITHOUT PROBLEMS. PT'S CALL LIGHT IS WITHIN REACH.
--- NOTE | 2016-03-22 07:52 | NUR ---
TALKING TO STAFF WHILE RESTING IN BED.
--- NOTE | 2016-03-22 08:03 | NUR ---
PATIENT HAS SOME CONFUSION. CALL LIGHT WITHIN REACH. VOICES NO NEEDS AT THIS TIME
--- NOTE | 2016-03-22 09:59 | NUR ---
DR. Twan BLACKWOOD IN. NEW ORDERS RECEIVED
--- NOTE | 2016-03-22 10:00 | NUR ---
DR. Twan BLACKWOOD IN. NEW ORDERS RECEIVED
[2016-03-22 10:01] VITALS: BP 123/69
--- NOTE | 2016-03-22 12:31 | NUR ---
JAYESH, SPEECH THERAPIST IN WORKING WITH PATIENT WHILE PATIENT EATS LUNCH.
--- NOTE | 2016-03-22 13:52 | RHP ---
PATIENT: REUBEN GIVENS MEDICAL RECORD: [id number] ACCOUNT: [id number] LOCATION:[id number] : [birth year] ADMISSION DATE: 03/20/16 REHABILITATION HISTORY AND PHYSICAL EXAMINATION POST ADMISSION PHYSICIAN EXAMINATION Post-admission Physical Exam and History and Physical DATE OF ADMISSION: 03/20/2016 HISTORY OF PRESENT ILLNESS: The patient is an 80-year-old female patient admitted to rehab with a working diagnosis of acute hypoxic respiratory failure secondary to pulmonary edema and congestive heart failure with diastolic dysfunction. The patient is an 80-year-old female patient who was admitted to the rehab for pulmonary problems due to a recent hypoxic respiratory failure secondary to pulmonary edema. She has a history of stage III chronic kidney disease. Her baseline creatinine was 1.3, but it is now 1.4. The patient had some dyspnea on the morning of March 15. She was given some Bumex. She is feeling better. She denies any fever or chills. There is no cough, no sputum production. Also, diagnosis of CHF with diastolic dysfunction. She has a history of Parkinson disease, and been seeing speech therapy due to a choking episode and not able to breath. She was found to have oropharyngeal dysphagia and her diet was changed to a puree with thin liquids. She is doing somewhat better now, would definitely need inpatient rehab to get back to her prior level of functioning. COMORBIDITIES: Include Parkinson's, left lower lobe pneumonia, fluid overload, chronic kidney disease, osteoarthritis, hypocalcemia, anemia, hypothyroidism, and insomnia. PAST MEDICAL HISTORY: Significant for chronic kidney disease, Parkinson's, hypocalcemia, irritable bowel syndrome, insomnia, hypothyroidism, and osteoarthritis. PAST SURGICAL HISTORY: Includes femur fracture and tubal ligation. ALLERGIES: SULFA AND ASPIRIN. CURRENT MEDICATIONS: Include Bumex, she gets 1 mg IV b.i.d., multivitamin daily, Synthroid 50 mcg daily, levothyroxine 250 for the next 5 days. She is on lactulose 15 cc daily, Floranex daily, Diflucan 100 mg daily. She is on Lovenox 30 mg subQ daily, Tums 500 mg t.i.d. with meals. She is on Zosyn ____ q.8 hours, melatonin 4 mg q.h.s. She is on [facility]oNeb [facility], Colace 100 mg b.i.d., calcitriol 0.5 mcg q.h.s. and she is on Tylenol 325 mg daily. HABITS: No current alcohol or tobacco use. FAMILY HISTORY: Noncontributory. SOCIAL HISTORY: The patient hopes to return back home and get back to her prior level of functioning. She lives up in [place]. REVIEW OF SYSTEMS: GENERAL: Does complain of weakness and fatigue. HEENT: Denies cold, cough or congestion at this time. HISTORY AND PHYSICAL [id number] REUBEN GIVENS CARDIOVASCULAR: Denies any chest pain. LUNGS: Does complain of shortness of breath with ambulation. PHYSICAL EXAMINATION: VITAL SIGNS: Stable. She is afebrile. GENERAL: A thin female, in no acute distress, alert upon exam. HEENT: Normocephalic and atraumatic. Mucosa moist. NECK: Supple. No lymphadenopathy. LUNGS: Clear in upper [place]. She does have decreased breath sounds in her bases. HEART: Regular rate and rhythm. ABDOMEN: Benign. EXTREMITIES: No clubbing, cyanosis, or edema. NEUROLOGIC: Intact. Does have some symptoms consistent with Parkinson's. LABORATORY DATA: Her white count was 9.1, H&H of 9.2 and 27.5 and platelet count is 239. Her sodium is 136, potassium 3.3, BUN and creatinine of 85 and 5.1 and her glucose was 65. Her calcium level is somewhat low at 6.7. ASSESSMENT: This is an 80-year-old female patient admitted to rehab with a working diagnosis of acute hypoxia, respiratory failure complicated by renal insufficiency. The patient has potential to make improvement. We instituted the following multidisciplinary therapies including to, but not limited to physical, occupational, respiratory, speech, nutritional services, prosthetics and orthotics. Given her complex condition and risk for more complications, rehabilitation services cannot be provided at a low level of care such as a long term facility. PLAN: 1. Admit to [facility] rehab for intensive inpatient therapy to include the following disciplines: A. Physical therapy to improve gait, all transfer skills and bed mobility to a modified independent level. B. Occupational therapy to improve activities of daily living at a modified independent level. C. Case management to assist with discharge planning and placement options. D. Nutrition to assist with nutritional needs. E. Rehabilitation nursing to assist and monitor the patient's underlying medical conditions and to assist with any type of bowel or bladder management. 2. The patient's current medication and medical care will be continued. 3. The patient will be placed on standard fall precautions. 4. The patient's estimated length of stay is approximately 7-10 days. 5. Discuss this patient during care team staff meeting this week. TRANSINT:[id number] Voice Confirmation ID: [id number] DOCUMENT ID: [id number] HISTORY AND PHYSICAL [id number] REUBEN GIVENS SCOTT MD at 1352 CC: [id number] DICTATION DATE: 03/21/16 1124 WARP DOFFER: 03/21/16 1153 ADM IN [place] [id number] [place] [address]
--- NOTE | 2016-03-22 14:42 | NUR ---
PATIENT TAKEN UP TO RADIOLOGY FOR BARRIUM SWALLOW.
--- NOTE | 2016-03-22 16:28 | NUR ---
PATIENT BACK IN BED AFTER THERAPY. MOD TRANSFER FROM WHEELCHAIR TO BED. PATIENT ABLE TO BEAR WEIGHT, VERY STIFF WITH MOVEMENT.
[2016-03-22 19:45] VITALS: BP 123/73
--- NOTE | 2016-03-22 20:15 | NUR ---
PT. IN BED WITH HOB UP AND HER HEAD IS LEANING TOWARDS THE LEFT SIDERAIL. POSITIONED PILLOW AFTER ASSESSMENT WAS COMPLETED NEXT TO SIDERAIL SO THAT PT'S HEAD WILL NOT LEAN AGAINST THE SIDERAIL. I.V. INFUSING VIA LFA SITE WITHOUT ANY PUMP ALARMS. PT. HAS NO VOICED NEEDS AT THIS TIME. CALL LIGHT IS WITHIN REACH.
--- NOTE | 2016-03-23 03:20 | NUR ---
PT. LYING IN BED AND CONTINUES TO LEAN HER HEAD TOWARDS HER LEFT SIDERAIL. PILLOW REMAINS POSITIONED TO PREVENT HEAD FROM TOUCHING SIDERAIL. I.V INFUSING TO LFA AT 50CC/HR VIA PUMP AND OLEARY TO BSD WITHOUT ANY PROBLEMS. CALL LIGHT REMAINS WITHIN REACH.
[2016-03-23 08:00] VITALS: BP 126/68
--- NOTE | 2016-03-23 12:56 | NUR ---
Nutrition Follow Up: Chart reviewed. Pt was sleeping soundly at the time of RD visit. Spoke with pt's daughter who said that she has been unable to wake pt to eat lunch. Daughter reported that pt is more lethargic today. Daughter stated that she is concerned about pt not eating. RD asked daughter about Nepro and she said that she thought pt may drink it. RD encouraged menu write in's and will send Nepro. Noted per MD note pt with profound muscle wasting. Diet: Renal soft with chopped meats and nectar thick liquids PO Intake: 37% I>O No BM since admit Wt stable Meds: NS @ 50 ml/hr, MV, Lactulose Labs noted Pt with poor po intake - not meeting est nutritional needs. Rec consider liberalizing diet to encourage po intake. Rec conisder an appetite stimulant. Will send Nepro BID. RD following.
--- NOTE | 2016-03-23 14:58 | NUR ---
CARE TEAM MEETING WAS HELD AND TENATIVE DISCHARGE DATE IS 04/03/16. WILL CONTINUE TO FOLLOW WITH PATIENT AND WILL ASSIST WITH DISCHARGE NEEDS.
[2016-03-23 21:10] VITALS: BP 126/75
--- NOTE | 2016-03-23 21:58 | NUR ---
PT MEDS CRUSHED AND GIVEN IN PUDDING. PT TOOK WITHOUT DIFFICULTY. PT DENIES NEEDS AT THIS TIME. BED LOW. CL IN REACH. WCTM.
--- NOTE | 2016-03-24 00:40 | NUR ---
PT RESTING, EYES CLOSED. BED LOW. CLIN REAHC. WCTM.
--- NOTE | 2016-03-24 03:15 | NUR ---
PT RESTING, EYES CLOSED. BED LOW. CL IN REACH. WCTM.
--- NOTE | 2016-03-24 06:39 | NUR ---
PT RESTING IN BED, DENIES NEEDS AT THIS TIME. BED LOW. CL IN REACH.
[2016-03-24 07:14] LABS: BASOPHILS 0.4 % (0.0-2.0); EOSINOPHILS 1.4 % (0-7); HEMATOCRIT 27.5 % (36.0-48.0); HEMOGLOBIN 9.2 g/dL (12-16); IMMATURE GRANULOCYTES 1.6 % (0-5); LYMPHOCYTES 19.3 % (15-50); MCH 30.3 pg (26.0-34.0); MCHC 33.5 g/dL (31.0-37.0); MCV 90.5 fL (80.0-100.0); MEAN PLATELET VOLUME 9.9 fL (7.4-10.4); MONOCYTES 8.5 % (2-11); NEUTROPHILS 68.8 % (40-80); PLATELET COUNT 228 10x3/uL (130-400); RBC 3.04 10x6/uL (4.00-5.40); RDW 14.4 % (11.5-14.5)
[2016-03-24 07:24] LABS: ANION GAP 20.7 mmol/L (8-16); CALCIUM 7.2 mg/dL (8.5-10.1); CARBON DIOXIDE 19.7 mmol/L (21.0-32.0); CREATININE - SERUM 4.7 mg/dL (0.6-1.3); POTASSIUM - SERUM 3.4 mmol/L (3.5-5.1)
--- NOTE | 2016-03-24 08:02 | NUR ---
PATIENTS DAUGHTER IN ROOM WITH PATIENT. WAITING FOR DR BLACKWOOD TO COME IN. REQUEST TO TALK TO DR BLACKWOOD ABOUT MOVING PATIENT TO ANOTHER FACILITY.
[2016-03-24 09:53] VITALS: BP 148/78
--- NOTE | 2016-03-24 10:25 | NUR ---
DR. Twan BLACKWOOD IN. TALKED WITH PATIENTS DAUGHTER. NEW ORDERS RECEIVED. PATIENT IS ALERT TO SELF AND PLACE ONLY
--- NOTE | 2016-03-24 12:00 | NUR ---
LINNEA IN ROOM TO HELP PATIENT EAT. PATIENT ON SOFT DIET WITH CHOPPED MEATS AND NECTAR THICK LIQS.
--- NOTE | 2016-03-24 13:51 | NUR ---
PATIENT IN REHAB ROOM. WORKING WITH OCCUPATIONAL THERAPIST. DENIES ANY PAIN/DISC AT THIS TIME
--- NOTE | 2016-03-24 16:11 | NUR ---
PATIENT USING CALL LIGHT TO GO TO THE BATHROOM. VERY WEAK. PATIENT ABLE TO AMBULATE FROM BED TO WHEELCHAIR WITH MODERATE ASST. ON ONE. NEEDS HELP WITH [facility] AFTER TOILETING.
--- NOTE | 2016-03-24 19:30 | NUR ---
PT RESTING, EYES CLOSED. BED LOW. CL IN REACH. WCTM.
[2016-03-24 19:45] VITALS: BP 157/83
--- NOTE | 2016-03-24 21:10 | NUR ---
PT TOOK ALL MEDS WHOLE WITH APPLESAUCE. PT HAS [id number] AT 2LPM. IV TO LEFT FOREARM IS PATENT RUNNING NS@50. PT DENEIS NEEDS AT THIS TIME. BED LOW. CL IN REACH. WCTM.
--- NOTE | 2016-03-24 21:40 | NUR ---
PT ZOSYN STARTED. PT DENIES NEEDS AT THIS TIME. BED LOW. CL IN REACH.
--- NOTE | 2016-03-25 01:05 | NUR ---
PT RESTING, EYES CLOSED. BED LOW. CLI N REACH.
--- NOTE | 2016-03-25 03:40 | NUR ---
PT HAD EPISODE OF INCONTINENT BOWEL. PT CLEANED, BRIEF AND PINK PAD CHANGED. PT DENIES NEEDS AT THIS TIME. BED LOW. CL IN REACH.
[2016-03-25 08:37] LABS: ANION GAP 18.3 mmol/L (8-16); CARBON DIOXIDE 21.7 mmol/L (21.0-32.0); CREATININE - SERUM 4.7 mg/dL (0.6-1.3)
--- NOTE | 2016-03-25 10:10 | NUR ---
BACK IN BED RESTING QUIETLY. DTR VISITING. PT VOICE IS QUIET AND SOFT. PT MAX ASSST WITH TRANSFERS. PER HER DTR REQUEST SHE IS GOTTEN UP EACH MEAL TO SIT IN W/C AND EAT.
--- NOTE | 2016-03-25 12:49 | NUR ---
TRANSFER ORDERS WRITTEN BY DR BLACKWOOD. PT RESTING QUIETLY IN BED. IV STILL INFUSING. SHE IS THIN AND FRAIL.
[2016-03-25 12:52] VITALS: BP 158/72
--- NOTE | 2016-03-25 14:12 | NUR ---
PT TRANSFERED TO ROOM IN [facility] 2. DAUGHTER NOTIFIED VIA PHONE CALL.
--- NOTE | 2016-05-08 07:35 | DS ---
PATIENT:REUBEN GIVENS :31 MEDICAL RECORD: [id number] DISCHARGE SUMMARY ADMISSION DATE: 03/20/16 DISCHARGE DATE: 03/25/16 ADMISSION DATE: 03/15/2016 DISCHARGE DATE: 03/20/2016 ADMISSION DIAGNOSES: Acute kidney injury on chronic kidney disease. DISCHARGE DIAGNOSES: Chronic kidney disease stage III, pneumonia, hyperparathyroidism, anemia, muscle weakness and deconditioning, hyperphosphatemia Parkinson disease, yeast urinary tract infection, hypocalcemia, irritable bowel, hypothyroidism, osteoarthritis, insomnia. CONSULTANTS: Dr. Roche with pulmonology, speech therapy evaluation consult. IMAGING AND SPECIAL PROCEDURES: On 03/15/2016, echo showed EF 55%, valvular structures normal, mild mitral regurgitation, no evidence of pericardial effusion, no other valvular insufficiency or stenosis, only mild MR. On 03/15/2016, renal ultrasound exam markedly limited due to bowel gas. The right kidney is only partially visualized and contains a cyst. The left kidney is not visualized. On 03/18/2016, abdominal CT showed severe pectus excavatum, deformity of the anterior chest wall, mild cardiomegaly, bilateral lower lobe airway disease, greater on the right, may be related to pneumonia, dilation of the esophagus. No acute intra-abdominal abnormality. On 03/18/2016, chest CT, severe pectus excavatum deformity of the anterior chest wall, mild cardiomegaly, bilateral lower lobe airspace disease, greater on the right, may be from pneumonia and dilated esophagus. On 03/20/2016, chest x-ray, improvement in the left lower lobe pneumonia. There appears to be airspace disease in the right lower lobe, which may be related to pneumonia as well. HOSPITAL COURSE: The patient is an 80-year-old female with a history of chronic kidney disease. Her creatinine increased to 4.3 and she was admitted with ELLA on CKD. Her baseline creatinine is around 1.3-1.5. A UA showed a yeast UTI and she was started on Diflucan due to her shortness of breath. Dr. Roche with pulmonology was consulted. It appeared that she had some hypoxemia due to pulmonary edema and also some congestive heart failure with diastolic dysfunction causing some possible fluid overload. She was given IV Bumex and her shortness of breath improved. On 03/16/2016, the patient was eating breakfast and was calling for help, said she could not breathe and rapid response was called. She has a history of Parkinson disease and has been on mechanical soft diet. Speech therapy was consulted and she demonstrated an oropharyngeal dysphagia and it was recommended that she take small bites and sips, alternating liquids and solids with her head of bed at 90 degrees. She needs a pureed diet. A Escalera catheter was placed in regards to her ELLA. A workup including ANCA, C3-C4, SPEP, UPEP, ENEIDA were all negative. Her PTH was greater than 900 and she was started on vitamin D. The patient was also found to be anemic and started on Procrit, and hyperphosphatemia due to renal failure and started on binders. However, the binders made her constipated. An echocardiogram was done and read by Dr. Prieto, which showed EF 55% and valvular structures are normal. No pericardial effusion. On March 19, Dr. Roche started her on Zosyn and Levaquin due to pneumonia and her Rocephin was discontinued. The Bumex was continued. A renal ultrasound was done, which was very limited and not showing the kidneys; therefore abdominal CT was done, which DISCHARGE SUMMARY REPORT [id number] REUBEN GIVENS both kidneys were unremarkable. A chest CT was done, which showed dilated esophagus, mild cardiomegaly, possible pneumonia and severe pectus excavatum. On 03/20/2016, the patient's shortness of breath was continuing to improve. She was accepted to rehab where she will continue her antibiotics for pneumonia and Diflucan for yeast UTI. We will be able to follow her renal function there. DISPOSITION AND FOLLOWUP: The patient was accepted to [facility] inpatient rehab where we will be able to follow her renal function closely. She will continue all medications on her discharge med rec. DISCHARGE MEDICATIONS: See discharge med rec. TRANSINT:[id number] Voice Confirmation ID: [id number] DOCUMENT ID: [id number] Dictated By: BRANDON ISRAEL I have interviewed/examined the above patient and agree with these documented findings. LARON CANALES MD at 0735 at 1145 CC: [id number] DICTATION DATE: 05/01/16 165 IT INFRASTRUCTURE SPECIALIST: 05/02/16 0206 DIS IN 03/25/16 [facility] [address] [place] [address]
== END 2016-03-25 14:15 | disposition short-term general hospital (02) | DRG 189 ==
LOC: D.REHAB 18:00
PROVIDERS: Internal Medicine; ADMIT Emergency Medicine
DX: J96.01 Acute respiratory failure with hypoxia (principal); J18.9 Pneumonia, unspecified organism; J81.1 Chronic pulmonary edema; I50.30 Unspecified diastolic (congestive) heart failure; N17.9 Acute kidney failure, unspecified; N18.3 Chronic kidney disease, stage 3 (moderate); G20 Parkinson's disease; M19.90 Unspecified osteoarthritis, unspecified site; E83.51 Hypocalcemia; D64.9 Anemia, unspecified; E03.9 Hypothyroidism, unspecified; G47.00 Insomnia, unspecified

== ENCOUNTER 2016-03-25 12:25 | Inpatient (IN) | payer MEDICARE, MEDICAID ==
[~2016-03-25] VITALS: Ht 167.6 cm; Wt 45.0 kg
--- NOTE | 2016-03-25 15:02 | NUR ---
NEW ADMIT FROM REHAB. OREINTED TO ROOM. CALL LIGHT IN REACH. WILL CONT. PLAN OF CARE.
[2016-03-25 15:04] VITALS: BP 166/97; Ht 167.6 cm; Wt 45.0 kg
[2016-03-25 16:22] VITALS: BP 166/97
--- NOTE | 2016-03-25 17:36 | NUR ---
PT SITTING UP IN BED WATCHING TV. ALERT, ORIENTED X2. DENIES NEEDS. ANIRUDH PATENT TO BSD. CALL LIGHT WITH IN REACH. WILL CONT. TO MONITOR.
[2016-03-25 21:48] VITALS: BP 152/80
--- NOTE | 2016-03-25 22:20 | NUR ---
INITIAL ROUNDS COMPLETED AT 1914 HRS. PT DENIED ANY DISCOMFORT. BOX ALARM PLACED AT THAT TIME. ASSESSMENT COMPLETED AT 1954 HRS. VSS. PT ALERT AND ORIENTED TO PERSON, PLACE AND SITUATION. REORIENTED TO TIME. IV TO LFA WITH NS AT 75CC/HR. IV PATENT. LUNGS DIMINISHED IN BASES BILAT. NO BREAKDOWN TO BACKSIDE NOTED. OLEARY DRAINING YELLOW URINE. PM MEDS GIVEN IN APPLE SAUCE. PT CURRENTLY RESTING WITH EYES CLOSED. RESP EVEN AND REGULAR. SR UP X2, CALL LIGHT WITHIN REACH AND BED ALARM ON.
[2016-03-26 00:30] VITALS: BP 128/73
--- NOTE | 2016-03-26 00:35 | NUR ---
PT RESTING WITH EYES CLOSED. RESP EVEN AND REGULAR. SR UP X2, CALL LIGHT WITHIN REACH AND BED ALARM ON.
--- NOTE | 2016-03-26 02:17 | NUR ---
PT RESTING WITH EYES CLOSED. RESP EVEN AND REGULAR. SR UP X2, CALL LIGHT WITHIN REACH AND BED ALARM ON.
[2016-03-26 04:30] VITALS: BP 155/92
--- NOTE | 2016-03-26 04:47 | NUR ---
PT RESTING WITH EYES CLOSED. RESP EVEN AND REGULAR. SR UP X2, CALL LIGHT WITHIN REACH.
--- NOTE | 2016-03-26 06:47 | NUR ---
VSS THJROUGHOUT NIGHT. PT SLEPT WELL DURING SHIFT. NEEDS MET; WILL CONTINUE TO MONITOR.
[2016-03-26 07:02] LABS: BASOPHILS 0.4 % (0.0-2.0); EOSINOPHILS 1.8 % (0-7); HEMATOCRIT 25.6 % (36.0-48.0); HEMOGLOBIN 8.6 g/dL (12-16); IMMATURE GRANULOCYTES 1.8 % (0-5); LYMPHOCYTES 12.2 % (15-50); MCH 30.6 pg (26.0-34.0); MCHC 33.6 g/dL (31.0-37.0); MCV 91.1 fL (80.0-100.0); MEAN PLATELET VOLUME 9.5 fL (7.4-10.4); MONOCYTES 7.9 % (2-11); NEUTROPHILS 75.9 % (40-80); PLATELET COUNT 244 10x3/uL (130-400); RBC 2.81 10x6/uL (4.00-5.40); RDW 14.5 % (11.5-14.5); WBC 5.6 10x3/uL (4.8-10.8)
--- NOTE | 2016-03-26 07:10 | NUR ---
RECEIVED REPORT. ASSUMED CARE OF PATIENT. RESTING WELL WITH EYES CLOSED. RESP EVEN AND UNLABORED. EASILY AROUSED. CALL LIGHT WITHIN REACH. NO DISTRESS. DENIES PAIN.
[2016-03-26 07:25] LABS: ANION GAP 20.6 mmol/L (8-16); CALCIUM 7.5 mg/dL (8.5-10.1); CARBON DIOXIDE 19.1 mmol/L (21.0-32.0); CREATININE - SERUM 4.4 mg/dL (0.6-1.3)
[2016-03-26 07:28] LABS: POTASSIUM - SERUM 2.7 mmol/L (3.5-5.1)
[2016-03-26 08:01] VITALS: BP 107/59
[2016-03-26 12:00] VITALS: BP 121/76
--- NOTE | 2016-03-26 12:48 | NUR ---
K+ RIDER #2 HUNG AT THIS TIME. NO DISTRES.
[2016-03-26 14:00] VITALS: BP 133/73
--- NOTE | 2016-03-26 15:54 | NUR ---
K+ RIDER #4 HUNG AT THIS TIME. NO DISTRESS.
--- NOTE | 2016-03-26 18:37 | NUR ---
ASSISTED PATIENT OFF BEDPAN, LOOSE STOOL NOTED. INCONTINENT AND PERICARE PROVIDED, OLEARY CARE PROVIDED. TURNED AND REPOSITIONED. NO DISTRESS.
[2016-03-26 20:30] VITALS: BP 169/86
--- NOTE | 2016-03-26 22:35 | NUR ---
INITIAL ROUNDS COMPLETED AT 1915 HRS. PT RESTING WITH EYES CLOSED. RESP EVEN AND REGULAR. ASSESSMENT COMPLETED AT 1999 HRS. IV TO LFA WITH NS AT 75CC/HR. IV PATENT. LUNGS DIMINISHED IN BASES BILAT. BRUISES NOTED TO BILAT ARMS. OLEARY DRAINING YELLOW URINE. BED ALARM IN USE. PM MEDS GIVEN PER ORDERS. PT CURRENTLY RESTING WITH EYES CLOSED. RESP EVEN AND REGULAR. SR UP X2, CALL LIGHT WITHIN REACH.
[2016-03-27 00:30] VITALS: BP 171/93
--- NOTE | 2016-03-27 00:53 | NUR ---
PT REPOSITIONED INBED FOR COMFORT. WILL CONTINUE TO MONITOR. SR UP X2, CALL LIGHT WITHIN REACH AND BOX ALARM ON.
--- NOTE | 2016-03-27 03:16 | NUR ---
PT RESTING WITH EYES CLOSED. RESP EVEN AND REGULAR. SR UP X2, CALL LIGHT WITHIN REACH AND BOX ALARM ON.
[2016-03-27 04:30] VITALS: BP 161/85
--- NOTE | 2016-03-27 05:36 | NUR ---
PT RESTING WITH EYES CLOSED. RESP EVEN AND REGULAR. SR UP X2, CALL LIGHT WITHN REACH AND BED ALARM ON.
--- NOTE | 2016-03-27 06:39 | NUR ---
VSS THROUGHOUT SHIIFT. PT SLEPT WELL DURING NIGHT. NEEDS MET; WILL CONTINUE TO MONITOR.
--- NOTE | 2016-03-27 07:33 | NUR ---
AM ROUNDING MADE. PATIENT IS DNR CODE STATUS PER REPORT. RESTING WITH EYES CLOSED, RESP ARE EVEN AND NON LABORED. ON ROOM AIR. NS SEEN INFUSING TO LEFT FA AT 75 CC/HR WITHOUT PROBLEMS. OLEARY CATH SEEN WITH CLEAR YELLOW URINE. WILL CONTINUE TO MONITOR.
[2016-03-27 08:00] VITALS: BP 149/78
[2016-03-27 09:55] LABS: BASOPHILS 0.1 % (0.0-2.0); EOSINOPHILS 2.4 % (0-7); HEMATOCRIT 24.9 % (36.0-48.0); HEMOGLOBIN 8.2 g/dL (12-16); IMMATURE GRANULOCYTES 1.9 % (0-5); LYMPHOCYTES 8.1 % (15-50); MCH 30.4 pg (26.0-34.0); MCHC 32.9 g/dL (31.0-37.0); MCV 92.2 fL (80.0-100.0); MEAN PLATELET VOLUME 9.2 fL (7.4-10.4); MONOCYTES 6.5 % (2-11); PLATELET COUNT 266 10x3/uL (130-400); RDW 14.8 % (11.5-14.5)
[2016-03-27 09:59] LABS: WBC 7.5 10x3/uL (4.8-10.8)
--- NOTE | 2016-03-27 10:04 | NUR ---
HCT IS 24.9, WILL RECEIVE 1 UNIT OF BLOOD TODAY WHEN READY.
[2016-03-27 10:11] LABS: ALBUMIN 2.7 g/dL (3.4-5.0); ANION GAP 17.7 mmol/L (8-16); BILIRUBIN - TOTAL 0.3 mg/dL (0.2-1.3); CALCIUM 7.5 mg/dL (8.5-10.1); CARBON DIOXIDE 18.3 mmol/L (21.0-32.0); CREATININE - SERUM 4.1 mg/dL (0.6-1.3); PHOSPHOROUS 3.3 mg/dL (2.5-4.9); PROTEIN - SERUM 6.1 g/dL (6.4-8.2)
[2016-03-27 10:15] LABS: INR 1.16 (0.85-1.17); PROTIME 14.7 SECONDS (11.6-15.0)
--- NOTE | 2016-03-27 10:22 | NUR ---
URINE SENT FOR UA AND C & S ORDERED.
--- NOTE | 2016-03-27 11:39 | NUR ---
1135-RETURNS FROM RADIOLOGY.
[2016-03-27 12:00] VITALS: BP 183/102
--- NOTE | 2016-03-27 12:50 | NUR ---
Patient Name: REUBEN GIVENS Admission Status: Urgent Accout number: [id number] Admission Date:1935 : 1935 Admission Diagnosis: Renal Failure Attending: SERGIO Current LOS: 2 Anticipated DC Date: 03-28-2016 Planned Disposition: Primary Insurance: MEDICARE A & B Discharge Planning Comments: CM met with patient to discuss dc plans/needs. Consent given by patient to discuss dc need. Prior to admission patient resided at [facility]. She requires assistance with bathing, dressing, medication administration, meal prep, and transportation. She uses a walker, shower chair, and cane. Patient reports the physician feels she needs dialysis but she does not want to do dialysis and she just wants nature to take its course. Cm discussed with patient about hospice and she stated he is going to talk to her daughter regarding this. She stated she may need to be closer to her daughter to be less of a burden on her. Patient gave cm permission to speak to her daughter. CM called Shira Levin, daughter, who stated she is going to be here today around 4:30 to talk with her mother and come up with a plan. She will contact cm upon arrival to hospital. CM discussed Inpatient Hospice and snf with hospice. She reports she already has a Medicare waiver in place with [facility] for her to go if needed at discharge. Cm encouraged her to have the nurse contact CM when she arrives to the hospital and we would be happy to meet with them to facilitate a safe discharge plan. Bulker: Gita Segal RN, CCM Is the patient Alert and Oriented? Yes * How many steps to enter\exit or inside your home? none * PCP Dr. Souza * Pharmacy [facility] * Preadmission Environment Assisted Living * Facility Name [facility] * ADLs Partial Dependent * Partial ADLs (Assistance needed) Bathing Dressing Medication Management * Equipment Cane Shower Chair Walker * List name and contact numbers for known caregivers / representatives who currently or will assist patient after discharge: Shira Levin - daughter - [phone] * Community resources currently utilized Home Health * Please name any agencies selected above. Thinks she may have HH but she is not sure. * Additional services required to return to the preadmission environment? Yes * Can the patient safely return to the preadmission environment? No * Has this patient been hospitalized within the prior 30 days at any hospital? Yes
--- NOTE | 2016-03-27 12:53 | NUR ---
Important Medicare message provided, explained, and signed by gretel. Copy given to patient and signed message placed in patients chart.
--- NOTE | 2016-03-27 12:59 | NUR ---
1255-FIRST UNIT OF PRBC STARTED SLOWLY INFUSING AT 125 CC/HR. WILL MONITOR.
[2016-03-27 13:22] LABS: APPEARANCE CLEAR (CLEAR); BACTERIA FEW /hpf (NONE SEEN); BILIRUBIN NEGATIVE (NEGATIVE); COLOR STRAW (YELLOW); EPITHELIAL CELLS OCC /hpf (0-5); GLUCOSE NEGATIVE (NEGATIVE); KETONE NEGATIVE (NEGATIVE); LEUKOCYTE ESTERASE NEGATIVE (NEGATIVE); MUCUS <1+ /lpf (NONE SEEN); NITRITE NEGATIVE (NEGATIVE); PROTEIN NEGATIVE (NEGATIVE); RED CELLS - URINE OCC /hpf (0-5); UROBILINOGEN NORMAL (NORMAL); WHITE CELLS - URINE RARE /hpf (0-5)
--- NOTE | 2016-03-27 15:15 | NUR ---
CALL PLACED TO [facility] ORTIZ APN R/T PATIENT'S BLOOD PRESSURE AND RECIEVING BLOOD. AWAITING CALL BACK.
--- NOTE | 2016-03-27 15:21 | NUR ---
[facility] WITH [facility] TO CALL BACK. NEW ORDERS RECEIVED.
[2016-03-27 16:00] VITALS: BP 168/98
[2016-03-27 21:27] VITALS: BP 153/98
[2016-03-28] VITALS: BP 161/89
[2016-03-28 04:00] VITALS: BP 158/82
[2016-03-28 05:59] LABS: BASOPHILS 0.3 % (0.0-2.0); LYMPHOCYTES 9.7 % (15-50); MCHC 33.2 g/dL (31.0-37.0); MEAN PLATELET VOLUME 10.3 fL (7.4-10.4); MONOCYTES 6.2 % (2-11); NEUTROPHILS 79.8 % (40-80); PLATELET COUNT 293 10x3/uL (130-400); RDW 15.4 % (11.5-14.5); WBC 7.7 10x3/uL (4.8-10.8)
[2016-03-28 06:03] LABS: HEMATOCRIT 31.3 % (36.0-48.0); HEMOGLOBIN 10.4 g/dL (12-16); MCV 90.2 fL (80.0-100.0); RBC 3.47 10x6/uL (4.00-5.40)
[2016-03-28 06:35] LABS: CALCIUM 8.1 mg/dL (8.5-10.1); CARBON DIOXIDE 18.5 mmol/L (21.0-32.0); PHOSPHOROUS 3.6 mg/dL (2.5-4.9)
[2016-03-28 06:39] LABS: ANION GAP 19.5 mmol/L (8-16)
--- NOTE | 2016-03-28 07:47 | NUR ---
0720-AROUSES EASILY, DENIES NEEDS AT PRESENT TIME. REQUESTING FRESH WATER, GIVEN. ON ROOM AIR. PATIENT IS DNR CODE STATUS. IV OF NS INFUSING AT 75 CC/HR TO LEFT FA WITHOUT PROBLEMS. OLEARY CATH IS PATENT WITH CLEAR YELLOW URINE. BOX ALARM IS ON AND IN USE. BLOOD COUNTS ARE NORMAL THIS AM. WILL CONTINUE TO MONITOR.
[2016-03-28 08:07] VITALS: BP 141/103
[2016-03-28 12:14] VITALS: BP 142/84
--- NOTE | 2016-03-28 12:43 | NUR ---
CALLED AND TALKED TO ZULMA IN PHAMACY R/T NO CALCIUM AND INSULIN TO BE GIVEN FOR HIGH POTASSIUM OF 6.0. STATES HE WILL WORK ON IT.
--- NOTE | 2016-03-28 13:17 | NUR ---
Patient Name: REUBEN GIVENS Encounter No: [id number] : 1935 Primary Insurance: MEDICARE A & B Anticipated DC Date: 03-28-2016 Planned Disposition: Hospice Medical Facility External Planned Provider: [facility] DCP follow-up note: CM RECEIVED REQUEST TO MEET WITH PT AND FAMILY IN ROOM. CM MET WITH PT AND DAUGHTER, BRENT TRENT, IN ROOM. BRENT REPORTS THAT PT HAS DECIDED NOT TO HAVE DIALYSIS AND HAS ELECTED FOR HOSPICE CARE. PT AND FAMILY ARE HOPING THAT PT CAN REMAIN IN [place] WITH HOSPICE AND AGREE TO EVALUATION FROM [facility]. IF PT DOES NOT MEET CRITERIA FOR INPATIENT HOSPICE, PT WILL CONSIDER GOING TO [facility] WITH HOSPICE. CM EXPLAINED THAT [facility] DOES NOT CONTRACT WITH ANY HOSPICE AGENCY AND HAS COMFORT CARE PROGRAM ADMINISTERED BY FACILITY STAFF. FAMILY REPORTED UNDERSTANDING AND WILL AWAIT HOSPICE EVALUATION TODAY. CM CALLED THOMAS OF [facility] WHO REPORTS ARRIVAL AT HOSPITAL IN ONE HOUR FOR HOSPICE EVALUATION. FAMILY NOTIFIED. CONTACT INFORMATION FOR FAMILY: SHAKIRSEUNBRENT, . CM WAITING COMPLETION AND RESULT OF HOSPICE EVALUATION BY [facility]. Rajan Donovan, CASE MANAGEMENT
--- NOTE | 2016-03-28 14:08 | NUR ---
DAUGHTER AT BEDSIDE, HOSPICE CONSULT ORDERED. MEDS GIVEN PER ORDERS FOR HIGH POTASSIUM. WILL CONTINUE TO MONITOR.
--- NOTE | 2016-03-28 15:43 | NUR ---
CALLED AND SPOKE WITH ZULMA IN PHARMACY AND HE REPLIES THAT SODIUM BICARB IS OKAY TO RUN WITH ERNIE.
[2016-03-28 15:45] VITALS: BP 146/93
--- NOTE | 2016-03-28 17:40 | NUR ---
SITTIN AT 45 DEGREE ANGLE EATING SUPPER, DENIES NEEDS AT PRESENT TIME. WILL CONTINUE TO MONITOR.
[2016-03-28 19:00] VITALS: BP 158/84
[2016-03-29 01:10] VITALS: BP 154/89
[2016-03-29 05:44] LABS: BASOPHILS 0.3 % (0.0-2.0); EOSINOPHILS 3.1 % (0-7); HEMATOCRIT 31.1 % (36.0-48.0); HEMOGLOBIN 10.2 g/dL (12-16); LYMPHOCYTES 13.7 % (15-50); MCH 29.7 pg (26.0-34.0); MCHC 32.8 g/dL (31.0-37.0); MCV 90.4 fL (80.0-100.0); MEAN PLATELET VOLUME 10.3 fL (7.4-10.4); MONOCYTES 7.1 % (2-11); NEUTROPHILS 74.8 % (40-80); PLATELET COUNT 305 10x3/uL (130-400); RBC 3.44 10x6/uL (4.00-5.40); RDW 15.5 % (11.5-14.5); WBC 7.7 10x3/uL (4.8-10.8)
[2016-03-29 06:01] LABS: ANION GAP 16.9 mmol/L (8-16); CALCIUM 8.1 mg/dL (8.5-10.1); CARBON DIOXIDE 22.5 mmol/L (21.0-32.0); CREATININE - SERUM 3.9 mg/dL (0.6-1.3); PHOSPHOROUS 3.3 mg/dL (2.5-4.9)
[2016-03-29 06:14] LABS: POTASSIUM - SERUM 4.4 mmol/L (3.5-5.1)
--- NOTE | 2016-03-29 07:45 | NUR ---
INTRODUCED MYSELF TO PT PRIMARY RN FOR TODAYS SHIFT. PT IS ALERT AND ORIENTED RESTING QUIETLY IN BED WATCHING TV. RR NONLABORED ON RA. PT HAS A L.FA PIV WITH SODIUM BICARB INFUSING @75ML/HR. SITE CDI WITH SWAB CAPS IN USE. PT HAS OLEARY DRAINING TO GRAVITY OFF R.SIDE OF BED, CLEAR YELLOW URINE. PT DENIES ANY PAIN OR CURRENT NEEDS. CL IN REACH, BED IN LOWEST, SIDE RAILS X2 AND BOX ALARM IN PLACE. WILL CPOC.
[2016-03-29 08:12] VITALS: BP 135/79
--- NOTE | 2016-03-29 09:58 | NUR ---
DISCONNECTED PT FROM IV FLUIDS PER . PT NOW SL WITH SWAB CAP IN USE. ASSISTED PT OFF BEDPAN, PT HAD SMALL LOOSE BM. PTS OLEARY IS TO BE REMOVED SO TEACHING DONE ON BLADDER TRAINING AND OLEARY CLAMPED. WILL CTM IT. REPOSITIONED PT UP IN BED FOR COMFORT PT VOICED THANKS AND DENIES ANY FURTHER NEEDS AT THIS TIME. CL IN REACH. WILL CTM.
[2016-03-29 12:04] VITALS: BP 143/87
--- NOTE | 2016-03-29 12:49 | NUR ---
PT DENIES FEELING TO VOID. UNCLAMPED OLEARY TO ALLOW TO DRAIN AT THIS TIME. WILL RECLAMP SHORTLY AND ATTEMPT FOR PT TO FEEL THE URGE TO VOID AGAIN.
[2016-03-29 16:25] VITALS: BP 146/101
--- NOTE | 2016-03-29 19:51 | NUR ---
ASSESSMENT COMPELTE, IN BED RESTING, RESPERATIONS SHALLOW. IV TO LEFT FOREARM WITH NS AT KVO. SITE CLEAN AND DRY. BED LOW, CL IN REACH, WILL CONT TO MONITOR.,
[2016-03-29 20:00] VITALS: BP 148/88
--- NOTE | 2016-03-29 20:47 | NUR ---
HS MEDS GIVEN, PT DENIES PAIN OR NEEDS, BED LOW, CL IN REACH.
[2016-03-30] VITALS: BP 145/98
--- NOTE | 2016-03-30 02:27 | NUR ---
LYING IN BED WITH CALL LIGHT IN REACH. WILL CONTINUE WITH PLAN OF CARE.
[2016-03-30 04:00] VITALS: BP 146/90
--- NOTE | 2016-03-30 04:57 | NUR ---
RESTING WITH EYES CLOSED, RESPERATIONS EVEN, NO S/S DISTRESS NOTED.
[2016-03-30 06:37] LABS: BASOPHILS 0.4 % (0.0-2.0); HEMATOCRIT 29.7 % (36.0-48.0); HEMOGLOBIN 9.9 g/dL (12-16); IMMATURE GRANULOCYTES 0.4 % (0-5); LYMPHOCYTES 11.7 % (15-50); MCH 30.2 pg (26.0-34.0); MCHC 33.3 g/dL (31.0-37.0); MCV 90.5 fL (80.0-100.0); MEAN PLATELET VOLUME 10.3 fL (7.4-10.4); MONOCYTES 9.6 % (2-11); NEUTROPHILS 76.9 % (40-80); PLATELET COUNT 286 10x3/uL (130-400); RBC 3.28 10x6/uL (4.00-5.40)
[2016-03-30 06:43] LABS: WBC 9.8 10x3/uL (4.8-10.8)
[2016-03-30 07:01] LABS: ANION GAP 17.8 mmol/L (8-16); CALCIUM 7.6 mg/dL (8.5-10.1); CARBON DIOXIDE 22.4 mmol/L (21.0-32.0); CREATININE - SERUM 4.2 mg/dL (0.6-1.3); PHOSPHOROUS 3.9 mg/dL (2.5-4.9); POTASSIUM - SERUM 4.2 mmol/L (3.5-5.1)
[2016-03-30 08:43] VITALS: BP 147/82
--- NOTE | 2016-03-30 12:07 | NUR ---
Patient Name: REUBEN GIVENS Encounter No: [id number] : 1935 Primary Insurance: MEDICARE A & B Anticipated DC Date: 03-28-2016 Planned Disposition: Nursing Facility [facility] External Planned Provider: [facility] WORKING ON SENIOR LIVING PLACEMENT DCP follow-up note: CM MET WITH PT IN ROOM, PROVIDED AND DISCUSSED IMPORTANT MESSAGE FROM MEDICARE. PT VERY SHORT OF BREATH, STILL WAITING ON HOSPICE TO WORK OUT PLACEMENT FOR HER. CM TO FOLLOW UP TODAY WITH [facility] REGARDING SENIOR LIVING PLACEMENT FOR HOSPICE ADMISSION. Rajan Donovan, CASE MANAGEMENT
[2016-03-30 12:11] VITALS: BP 121/84
--- NOTE | 2016-03-30 14:00 | NUR ---
Patient Name: REUBEN GIVENS Encounter No: [id number] : 1935 Primary Insurance: MEDICARE A & B Anticipated DC Date: 03-28-2016 Planned Disposition: Nursing Facility [facility] External Planned Provider: [facility], LONG TERM CARE MEDICAID BED DCP follow-up note: CM RECEIVED MESSAGE FROM [facility] WHO INFORMED CM THAT PT HAS BEEN ACCEPTED AT [facility] WHO WILL ACCEPT PT TODAY. PT WILL ADMIT TO HOSPICE AFTER ARRIVAL AT [facility]. CM FAXED DISCHARGE INFORMATION TO [facility], . WHEN NOTIFIED BY [facility] THAT THEY READY, NURSE REPORT TO BE CALLED TO [facility] AT [phone]. PT TO TRANSPORT VIA AMBULANCE. Rajan Donovan, CASE MANAGEMENT
[2016-03-30 16:00] VITALS: BP 143/83
--- NOTE | 2016-03-30 17:06 | NUR ---
Patient Name: REUBEN GIVENS Encounter No: [id number] : 1935 Primary Insurance: MEDICARE A & B Anticipated DC Date: 03-30-2016 Planned Disposition: Nursing Facility [facility] External Planned Provider: [facility], [facility] MEDICAID BED DCP follow-up note: CM RECEIVED CALL FROM GUALBERTO OF [facility] WHO ADVISED THAT THEY READY TO ACCEPT PT, CM FAXED DISCHARGE INFORMATION TO [facility] AT [phone] AND [facility], . NURSE REPORT TO BE CALLED TO [facility] AT [phone]. PT TO TRANSPORT VIA AMBULANCE. Rajan Donovan, CASE MANAGEMENT
--- NOTE | 2016-03-30 18:55 | DS ---
PATIENT:REUBEN GIVENS :[birth year] MEDICAL RECORD: [id number] DISCHARGE SUMMARY ADMISSION DATE: 03/25/16 DISCHARGE DATE: DATE OF ADMISSION: 03/25/2016 DATE OF DISCHARGE: 03/30/2016 ADMITTING DIAGNOSES: Acute kidney injury, chronic kidney disease, Parkinson, hyperparathyroidism that is chronic, and iron deficient anemia. HOSPITAL COURSE: This is a lady who had been down in rehab with a recent pneumonia, transferred up here to the acute setting for possible need for dialysis due to worsening jqzlw-ga-ugolvjn kidney disease. Renal was consulted. All events, lab procedures, diagnostic testing are well documented in the records. Her primary care physician is Dr. Souza. Dr. Carney discussed dialysis options with the family and they do not want dialysis, they have requested a hospice. The patient has remained somewhat confused while here and lethargic. She does follow simple commands at times. She is transferred to hospice. DISCHARGE DIAGNOSES: Pfkvi-pk-lediuga kidney disease stage III, now progressed to stage V, severe debility, Parkinson's, transferred to hospice. Greater than 30 minutes was spent on this discharge. TRANSINT:[id number] Voice Confirmation ID: [id number] DOCUMENT ID: [id number] Dictated By: SHUBHAM BOWLES RN I have interviewed/examined the above patient and agree with these documented findings. ROSE SANCHEZ DO at 1855 Manually Signed by SHUBHAM BOWLES CC: [id number] DICTATION DATE: 03/30/16 1336 JACKER: 03/30/16 1447 ADM IN [id number] [place] [address]
--- NOTE | 2016-03-30 19:59 | NUR ---
0800- PATIENT RESTING QUIETLY WITH EYES CLOSED, MOUTH AGAPE, RESPIRATIONS EVEN AND DEEP. 1045- PATINET SPOON FED HER YOGURT AND PUDDING. MEDICATIONS GIVEN. PATIENT WAS VERY THIRSTY, DRANK 1.2 12 OZ CUP OF WATER. 1300- PATIENT PLACED ON THE BEDPAN. 1415- PATIENT GIVEN ORAL MEDICATIONS WITHOUT DIFFICULTY. 1630- PAITENT REFUSED HER MEAL. MEDICATIONS GIVEN.
--- NOTE | 2016-03-30 20:01 | NUR ---
1809- [facility] SPOKE WITH MEAGAN MATHUR. 1939- AMBULANCE SERVICE CALLED. 2002- PATIENT OFF THE FLOOR VIA AMBULANCE.
--- NOTE | 2016-03-30 22:27 | NUR ---
PATIENT ALERT AND ORIENTED , LEFT FOREARM SL D/C'ed, DAUGHTER TO PICKUP BELONGINGS, LEFT VIA EMS, RETURNING TO [facility]
== END 2016-03-30 20:00 | DRG 682 ==
LOC: D.M2 12:25
PROVIDERS: Family Medicine Adult Medicine; Internal Medicine Nephrology; ADMIT Emergency Medicine
DX: N17.9 Acute kidney failure, unspecified (principal); J18.9 Pneumonia, unspecified organism; N18.3 Chronic kidney disease, stage 3 (moderate); R62.7 Adult failure to thrive; G20 Parkinson's disease; E21.3 Hyperparathyroidism, unspecified; D50.9 Iron deficiency anemia, unspecified; E87.6 Hypokalemia; R53.81 Other malaise

== ENCOUNTER → 2016-07-11 12:23 | Outpatient (CLI) | payer MEDICARE, MEDICAID ==
[2016-03-25 15:04] VITALS: BMI 16.0
== END | disposition home or self-care (01) ==
LOC: D.RAD 12:23
DX: R13.10 Dysphagia, unspecified (principal)